=== PATIENT | female | born 1945 | race Caucasian/White ===

== ENCOUNTER 2017-10-04 09:14 | Day surgery (SDC) | payer MEDICARE, SELFPAY ==
[2017-10-04 10:13] VITALS: BP 130/71; PULSE 77; RESP 18; TEMP 36.2; O2SAT 96
--- NOTE | 2017-10-04 10:21 | PM.PREOP ---
Pre-operative Note Interval Note Pre-op Check: History & Physical Reviewed by Physician
[2017-10-04] MEDS: PROPARACAINE 0.5% OPHTH SOL 2 DROPS EYE-OP (10:32)
[2017-10-04] MEDS: CATARACT EYE COMPOUND (10 DROPS/SYRINGE) 3 DROPS EYE-OP (10:33)
[2017-10-04] MEDS: BALANCED SALT IRRIG SOLN NO.2 15 ML IRRIG.SOLN IRR (12:12)
[2017-10-04] MEDS: CARBACHOL 1.5 ML VIAL INJ (12:13)
[2017-10-04] MEDS: HYALURONATE SODIUM 10 MG/ML SYRINGE INJ (12:13)
[2017-10-04] MEDS: CHONDROIDTIN/SOD HYALURONATE 1.05 ML SYRINGE INTRAOCULA (12:13)
[2017-10-04] MEDS: MOXIFLOXACIN OPHTH DROPS 3 ML BOTTLE 2 DROPS INJ (12:14)
[2017-10-04] MEDS: PHENYLEPHRINE/LIDOCAINE 3ML VIAL (OR) EYE-OP (12:15)
[2017-10-04] MEDS: NEOMYCIN/POLY/DEX OPHTH OINT 1 APPLIC EYE-LEFT (12:15)
[2017-10-04] MEDS: TRIAMCINOLONE 50 MG/5 ML VIAL INJ (12:16)
[2017-10-04] MEDS: LIDOCAINE 2% 4 ML, BUPIVACAINE 0.5% (PF) 4 ML, HYALURONIDASE 150 UNIT INJ (12:17)
[2017-10-04] MEDS: BALANCED SALT IRRIG SOLN NO.2 500 ML, EPINEPHrine 1 MG IRR (12:17)
[2017-10-04] MEDS: LIDOCAINE 1% W/EPI INJ 20 ML INJ (12:18)
[2017-10-04 13:20] VITALS: BP 149/82; PULSE 71; RESP 16; TEMP 36.1; O2SAT 100
--- NOTE | 2017-10-04 15:16 | PM.OP.1 ---
Procedure & Clinicians Procedure: Date of service: October 05, 2007 Preoperative diagnoses: 1. Nuclear sclerotic Cataract Postoperative diagnoses: 1. Cataract nuclear sclerotic Procedure: Phacoemulsification with posterior chamber intraocular lens implant Surgeon: Edel De La Rosa MD Complications: None Specimen: None Implant: ZCBOO +23.5. Blood loss: None Anesthesia: Retrobulbar with monitored standby Anesthesiologist: Rico Alonzo M.D. Description of procedure: Patient is a 72 year old with decreased vision due to cataract which is affecting activities of daily living. She wants surgery to improve vision. She has taken to the operating room and given IV sedation. A retrobulbar block insert consisting of 6 cc of 2% xylocaine without epinephrine mixed half and half with 0.5% Marcaine with 1 cc of hyaluronidase added is placed between the medial and lateral 1/3 of the inferior orbital rim. Lid akinesia is obtain with 1% xylocaine with epinephrine infiltrated along the lid margin. The eye is manually massaged for 30 sec, prepped using Betadine solution, and draped in the usual sterile fashion. Temporal approach was made, a 1 mm side-port incision was made at the 12 oclock meridian. Phenylephrine 1.5% mixed with 1% xylocaine 0.2 cc was placed into the anterior chamber. Viscoat followed by Gerald was then placed. A 2.6 mm clear incision with a 2.6 mm blade was placed at the 3 oclock meridian. A 360 degree capsulorrhexis style capsulotomy was then performed with a cystitome needle on a Healon. Hydrodelineation and hydrodissection were performed. The phacoemulsification unit is introduced, and sculpting notice used to groove the central lens. It is then removed in chopping mode. Epi nucleus is removed with epinuclear mode and irrigation aspiration was used to remove the peripheral cortex. The posterior capsule is polished. The intraocular lens is selected, inspected, power confirmed, and placed in the posterior chamber. The pupil was constricted. The wound was stromally hydrated and tested for leaks, there was none and was left sutureless. Vigamox 0.1 cc was placed into the anterior chamber. Kenalog 0.2 cc was placed in the superior subconjunctival space. A drop of antibiotic and was placed and the eye was patched and shielded. The patient was stable and returned to the recovery room in excellent condition. Dictated by: Edel De La Rosa MD Copy to: [facility]
== END 2017-10-04 13:20 | disposition home or self-care (01) ==
PROVIDERS: Family Provider Internal Medicine; PCP Internal Medicine; Visit Provider Ophthalmology
DX: H25.12 Age-related nuclear cataract, left eye (principal)
CPT/HCPCS: J0171; J2704; J3301; J3470

== ENCOUNTER → 2017-10-09 13:06 | Outpatient (CLI) | payer MEDICARE, SELFPAY | PROVIDERS: PCP Internal Medicine; Visit Provider Internal Medicine | DX: M81.0 Age-related osteoporosis without current pathological fracture (principal); Z78.0 Asymptomatic menopausal state; Z82.62 Family history of osteoporosis | CPT/HCPCS: 77080 ==

== ENCOUNTER 2017-10-11 08:04 | Day surgery (SDC) | payer MEDICARE, SELFPAY ==
--- NOTE | 2017-10-06 16:40 | P.OP_ITS ---
Procedure & Clinicians Procedure: Date of service: October 12, 2007 Preoperative diagnoses: 1. Right nuclear sclerotic Cataract Postoperative diagnoses: 1. Cataract status post phacoemulsification with posterior chamber intraocular lens implant. Procedure: Phacoemulsification with posterior chamber intraocular lens implant Surgeon: Edel De La Rosa MD Complications: None Specimen: None Implant: +22.5 Blood loss: None Anesthesia: Retrobulbar with monitored standby Anesthesiologist: Geneva Bae Description of procedure: Patient is a female year old with decreased vision due to cataract which is affecting activities of daily living. She wants surgery to improve vision. She was taken to the operating room and given IV sedation. A retrobulbar block insert consisting of 6 cc of 2% xylocaine without epinephrine mixed half and half with 0.5% Marcaine with 1 cc of hyaluronidase added is placed between the medial and lateral 1/3 of the inferior orbital rim. Lid akinesia is obtain with 1% xylocaine with epinephrine infiltrated along the lid margin. The eye is manually massaged for 30 sec, prepped using Betadine solution, and draped in the usual sterile fashion. Temporal approach was made, a 1 mm side-port incision was made at the 7:30 position. Phenylephrine 1.5% mixed with 1% xylocaine 0.2 cc was placed into the anterior chamber. Viscoat followed by Gerald was then placed. A 2.6 mm clear incision with a 2.6 mm blade was placed at the 170 degree meridian. A 360 degree capsulorrhexis style capsulotomy was then performed with a cystitome needle on a Healon. Hydrodelineation and hydrodissection were performed. The phacoemulsification unit is introduced, and sculpting notice used to groove the central lens. It is then removed in chopping mode. Epi nucleus is removed with epinuclear mode and irrigation aspiration was used to remove the peripheral cortex. The posterior capsule is polished. The intraocular lens is selected, inspected, power confirmed, and placed in the posterior chamber. The pupil was constricted. The wound was strongly hydrated and tested for leaks, there was none and was left sutureless. Vigamox 0.1 cc was placed into the anterior chamber. Kenalog 0.2 cc was placed in the superior subconjunctival space. A drop of antibiotic and was placed and the eye was patched and shielded. The patient was stable and returned to the recovery room in excellent condition. Dictated by: Edel De La Rosa MD Copy to: [facility]
--- NOTE | 2017-10-06 16:41 | PM.PREOP ---
Pre-operative Note Interval Note Pre-op Check: History & Physical Reviewed by Physician
[2017-10-11] MEDS: PROPARACAINE 0.5% OPHTH SOL 2 DROPS EYE-OP (08:22)
[2017-10-11 08:23] VITALS: BP 128/77; PULSE 76; RESP 16; TEMP 36.3; O2SAT 99; BMI 51.0
[2017-10-11] MEDS: CATARACT EYE COMPOUND (10 DROPS/SYRINGE) 3 DROPS EYE-OP (08:24)
[2017-10-11] MEDS: BALANCED SALT IRRIG SOLN NO.2 15 ML IRRIG.SOLN IRR (09:15)
[2017-10-11] MEDS: CHONDROIDTIN/SOD HYALURONATE 1.05 ML SYRINGE INTRAOCULA (09:16)
[2017-10-11] MEDS: HYALURONATE SODIUM 10 MG/ML SYRINGE INJ (09:16)
[2017-10-11] MEDS: CARBACHOL 1.5 ML VIAL INJ (09:16)
[2017-10-11] MEDS: LIDOCAINE 1% W/EPI INJ 20 ML INJ (09:17)
[2017-10-11] MEDS: MOXIFLOXACIN OPHTH DROPS 3 ML BOTTLE 2 DROPS INJ (09:17)
[2017-10-11] MEDS: OFLOXACIN 0.3% OPHTH 5 ML 2 DROPS EYE-RIGHT (09:18)
[2017-10-11] MEDS: NEOMYCIN/POLY/DEX OPHTH OINT 1 APPLIC EYE-RIGHT (09:18)
[2017-10-11] MEDS: PHENYLEPHRINE/LIDOCAINE 3ML VIAL (OR) EYE-OP (09:19)
[2017-10-11] MEDS: TRIAMCINOLONE 50 MG/5 ML VIAL INJ (09:20)
[2017-10-11] MEDS: BALANCED SALT IRRIG SOLN NO.2 500 ML, EPINEPHrine 1 MG IRR (09:20)
[2017-10-11] MEDS: LIDOCAINE 2% 4 ML, BUPIVACAINE 0.5% (PF) 4 ML, HYALURONIDASE 150 UNIT INJ (09:20)
[2017-10-11 10:00] VITALS: BP 130/69; PULSE 70; RESP 16; TEMP 36.2; O2SAT 98
== END 2017-10-11 10:30 | disposition home or self-care (01) ==
LOC: OR 08:06
PROVIDERS: PCP Internal Medicine; Visit Provider Ophthalmology
DX: H25.11 Age-related nuclear cataract, right eye (principal)
CPT/HCPCS: J0171; J2704; J3301; J3470

== ENCOUNTER 2017-11-29 12:39 | Day surgery (SDC) | payer MEDICARE, SELFPAY ==
--- NOTE | 2017-11-29 | PATH_ITS ---
[facility] Accession Number: [id number] . 01 Material submitted: . TRANSVERSE COLON POLYPS . 02 Diagnosis: Transverse Colon Polyps: Serrated polyp, cannot exclude sessile serrated adenoma x1. Submucosal leiomyoma x1. MRV/11/30/2017 . 02 Electronically signed: . Lio Pitt MD, PhD, Pathologist NPI- [id number] . 01 Gross description: . Received in one formalin-filled container labeled with the patient's name and labeled transverse col polyps x2, are two 0.3-0.4 cm portions of tissue, entirely submitted in one cassette. ([id number]) /FRR . 02 Pathologist provided ICD-10: D12.3, K63.5 . 02 CPT . 205201 Performed at: 01 [facility] [address] [id number] MD Dayron Luevano MD Phone: [phone] Performed at: 02 [facility] [address] [address] [place] [id number] MD Amador Koehler MD Phone: [phone]
[2017-11-29 13:00] VITALS: BP 119/72; PULSE 77; RESP 16; TEMP 36.1; O2SAT 98; BMI 23.0
[2017-11-29 13:07] VITALS: BMI 23.0
[2017-11-29] MEDS: SODIUM CHLORIDE 0.9% 1,000 ML 42 ML IV (13:09)
[2017-11-29] MEDS: fentaNYL 250 MCG/5 ML INJ IV (14:38)
--- NOTE | 2017-11-29 14:46 | PM.HP.1 ---
History of Present Illness Date Patient Seen: 11/29/17 Time Patient Seen: 14:46 Chief complaint: [id number] COLONOSCOPY WITH BIOPSY Narrative: Screening for colon cancer. First colonoscopy Patient History Family & Social History Social History: household members children Meds Home Medications Medication Instructions Recorded Confirmed Type aspirin 81 mg PO QDAY #0 06/25/16 11/29/17 History omega 0-gsy-gdk-fish oil [Fish Oil] 1,000 mg PO #0 06/25/16 History phytonadione (vitamin K1) 5 mg PO #0 06/25/16 History [Mephyton] Allergies Allergy/AdvReac Type Severity Reaction Status Date / Time Latex, Natural Rubber Allergy Verified 10/04/17 10:31 Exam Vital Signs (past 8 hours): - 11/29/17 13:00 Temperature 96.9 F L Pulse Rate 77 Respiratory Rate 16 Blood Pressure 119/72 Pulse Oximetry 98 Oxygen Delivery Method Room Air Narrative Exam Narrative: Oropharynx free of lesion Chest: Auscultation percussion Cardiac exam reveals no S3 or murmur Assessment & Plan Plan: Assessment/Plan Narrative: Screening colonoscopy
[2017-11-29] MEDS: MIDAZOLAM 5 MG/5 ML VIAL IV (14:47)
[2017-11-29 14:48] VITALS: BP 115/71; PULSE 68; RESP 12; TEMP 36.6; O2SAT 95
--- NOTE | 2017-11-29 14:48 | PM.OP.ENDO ---
Operative Date/Time/Diagnoses Date of procedure: 11/29/17 Time of procedure: 14:48 Pre-op diagnosis: See indication and findings Post-op diagnosis: same Procedure & Clinicians Study performed: Colonoscopy Same procedure as scheduled: Yes Indications: Screening for colon cancer. First colonoscopy Surgeon: Georgina Lockett Procedure Notes Procedure in detail: After informed consent was obtained the patient was placed in left lateral decubitus position. The video colonoscope was introduced the rectum slowly advanced to the cecum. Also withdrawn mucosa was carefully examined. Scope was removed patient tolerated procedure well. Preparation was good. Blood loss none Complications none Sedation Versed 100 mcg versed 6 mg IV titration Total sedation time 26 min Findings 1. Two polyps in the transverse colon trouble biopsied and removed completely 2. 3 mm polyp in the sigmoid colon Jumbo biopsy remove completely 3. Scattered diverticula in left colon 4. Otherwise negative colonoscopy to cecum Patient will be sent a letter regarding the pathology results. Follow-up will be based on these findings. Most likely 5 years.
[2017-11-29 14:54] VITALS: BP 118/76; PULSE 82; RESP 18; O2SAT 97
[2017-11-29 14:58] VITALS: BP 119/74; PULSE 75; RESP 14; TEMP 36.2; O2SAT 95
[2017-11-29 15:07] VITALS: BP 112/66; PULSE 71; RESP 16; TEMP 36; O2SAT 96
--- NOTE | 2017-11-29 18:26 | SUR.PHASEII ---
1520 Pt vomited yellow fluid after sitting up to dress. Denied nausea after emesis. Requested to d/c home. Skin pink.
== END 2017-11-29 15:23 | disposition home or self-care (01) ==
PROVIDERS: PCP Internal Medicine; Visit Provider Internal Medicine Gastroenterology
PROC: 0DJD8ZZ Inspection of Lower Intestinal Tract, Via Natural or Artificial Opening Endoscopic (ICD-10-PCS; CPT 45378; principal; 2017-11-29 13:30)
DX: Z12.11 Encounter for screening for malignant neoplasm of colon (principal); D12.3 Benign neoplasm of transverse colon; D12.5 Benign neoplasm of sigmoid colon; K57.30 Diverticulosis of large intestine without perforation or abscess without bleeding
CPT/HCPCS: 45380; 88305; J2250; J3010

== ENCOUNTER → 2017-12-22 10:32 | Outpatient (CLI) | payer MEDICARE, SELFPAY ==
[2017-12-22 11:59] LABS: BUN Creatinine Ratio 24.3 (6-22); Blood Urea Nitrogen 17 mg/dL (7-17); Calcium 9.3 mg/dL (8.4-10.2); Carbon Dioxide 31 mmol/L (22-32); Chloride 101 mmol/L (98-107); Estimated Glomerular Filt Rate > 60.0 mL/min (>60); Glucose 102 mg/dL (80-110); HEMOLYSIS < 15 (0-50); Potassium 4.1 mmol/L (3.4-5.1); Sodium 138 mmol/L (137-145)
[2017-12-22 12:16] LABS: Vitamin D 25 Hydroxy (D3) 61.4 ng/mL (30.0-100.0)
== END ==
PROVIDERS: PCP Internal Medicine; Visit Provider Internal Medicine
DX: M81.0 Age-related osteoporosis without current pathological fracture (principal)
CPT/HCPCS: 36415; 80048; 82306

== ENCOUNTER → 2018-01-31 09:48 | Outpatient (CLI) | payer MEDICARE, SELFPAY ==
--- NOTE | 2018-01-31 | DI.MG.S_ITS ---
BILATERAL DIGITAL SCREENING MAMMOGRAM 3D/2D WITH CAD: 01/31/2018 CLINICAL: Routine screening. Comparison is made to exams dated: 08/23/2016 mammogram, 02/05/2014 mammogram - [facility], and 04/23/2012 mammogram - [facility]. The tissue of both breasts is extremely dense, which lowers the sensitivity of mammography. Current study was also evaluated with a Computer Aided Detection (CAD) system. There are benign vascular calcifications in both breasts. No significant masses, calcifications, or other findings are seen in either breast. There has been no significant interval change. IMPRESSION: There is no mammographic evidence of malignancy. A 1 year screening mammogram is recommended.(02/01/2019) This exam was interpreted at Station ID: [id number]. NOTE: For mammograms, a report in lay terms will be sent to the patient. Approximately 15% of breast malignancies will not be visualized mammographically. In the management of a palpable breast mass, a negative mammogram must not discourage biopsy of a clinically suspicious lesion. Electronically Signed By: Eder singh/peyton:02/01/2018 05:27:56 letter sent: Normal Exam ACR BI-RADS Category 2: Benign Finding(s) 3342F
== END ==
PROVIDERS: PCP Internal Medicine; Visit Provider Internal Medicine
DX: Z12.31 Encounter for screening mammogram for malignant neoplasm of breast (principal)
CPT/HCPCS: 77063; 77067

== ENCOUNTER → 2018-03-21 12:48 | Outpatient (CLI) | payer MEDICARE, SELFPAY ==
[2018-03-21 20:10] LABS: Alanine Aminotransferase 29 IU/L (9-52); Albumin 4.4 g/dL (3.5-5.0); Albumin Globulin Ratio 1.6 (1.0-2.8); Alkaline Phosphatase 82 U/L (38-126); Aspartate Aminotransferase 34 IU/L (14-36); BUN Creatinine Ratio 26.7 (6-22); Bilirubin Total 0.8 mg/dL (0.2-1.3); Blood Urea Nitrogen 16 mg/dL (7-17); Calcium 9.6 mg/dL (8.4-10.2); Carbon Dioxide 27 mmol/L (22-32); Chloride 101 mmol/L (98-107); Estimated Glomerular Filt Rate > 60.0 mL/min (>60); Globulin 2.8 g/dL (1.7-4.1); Glucose 87 mg/dL (80-110); HEMOLYSIS < 15 (0-50); Magnesium 2.3 mg/dL (1.6-2.3); Phosphorous 4.4 mg/dL (2.8-4.1); Potassium 4.5 mmol/L (3.4-5.1); Sodium 139 mmol/L (137-145); Total Protein 7.2 g/dL (6.3-8.2)
[2018-03-21 20:11] LABS: C-Reactive Protein Quant < 0.5 mg/dL (<1.0)
[2018-03-21 23:14] LABS: Thyroid Stimulating Hormone 1.54 uIU/mL (0.47-4.68)
[2018-03-22 03:23] LABS: Free T4, Direct Thyroxine 1.59 ng/dL (0.78-2.19)
== END ==
PROVIDERS: PCP Internal Medicine; Visit Provider Internal Medicine
DX: M81.0 Age-related osteoporosis without current pathological fracture (principal); E78.00 Pure hypercholesterolemia, unspecified
CPT/HCPCS: 36415; 80053; 82523; 83735; 84075; 84100; 84439; 84443; 86140

== ENCOUNTER 2018-06-15 15:48 | Emergency (ER) | payer MEDICARE, SELFPAY ==
[2018-06-15 15:54] VITALS: BP 128/72; PULSE 84; RESP 14; TEMP 36.3; O2SAT 98; BMI 23.1
--- NOTE | 2018-06-15 15:57 | DI.RAD.S_ITS ---
PROCEDURE: XR WRIST RT MIN 3V INDICATIONS: wrist deformity TECHNIQUE: 2 views of the wrist were acquired. COMPARISON: None. FINDINGS: Bones: There is an impacted, comminuted fracture through the distal radius. This likely extends into the joint space. Soft tissues: No suspicious soft tissue calcifications. IMPRESSION: Impacted comminuted distal radial fracture. Dictated by: Yesika Mccain M.D. on 06/15/2018 at 16:21 Approved by: Yesika Mccain M.D. on 06/15/2018 at 16:22
--- NOTE | 2018-06-15 17:45 | ED.UPPEXIN ---
HPI - Extremity Injury (Upper) <EBONY Gonzalez - Last Filed: 06/15/18 22:19> General Chief Complaint: Extremity Injury, Upper Stated Complaint: glf right wrist pain Time Seen by Provider: 06/15/18 17:14 Source: patient Mode of arrival: ambulatory History of Present Illness HPI narrative: healthy 73-year-old female that is a nonsmoker for complaint of pain into her right wrist. She states that she slipped earlier today while she was walking and fell on outstretched hand. She reports increased pain and swelling to the right wrist after the fall. She denies any head injury. No neck pain. She denies any lower extremity pain. She is ambulatory in the emergency room. She denies any other injuries or concerns. In MD complaint: injury to: right and wrist Related Data Home Medications Medication Instructions Recorded Confirmed aspirin 81 mg PO QDAY #0 06/25/16 05/14/18 omega 3-jzj-yby-fish oil [Fish Oil] 1,000 mg PO #0 06/25/16 05/14/18 phytonadione (vitamin K1) 5 mg PO #0 06/25/16 05/14/18 [Mephyton] melatonin 2.5 mg chewable tablet 2.5 mg PO BEDTIME PRN 05/14/18 05/14/18 Previous Rx's Medication Instructions Recorded hydrocodone-acetaminophen 1 tab PO Q6H PRN #10 tab 06/15/18 Allergies Allergy/AdvReac Type Severity Reaction Status Date / Time Latex, Natural Rubber Allergy Verified 06/15/18 15:54 Review of Systems <EBONY Gonzalez - Last Filed: 06/15/18 22:19> Constitutional Denies chills, Denies fever(s), Denies lethargy and Denies weakness Cardiovascular Denies chest pain, Denies irregular heart rhythm, Denies lightheadedness, Denies palpitations, Denies dyspnea, Denies dyspnea on exertion and Denies orthopnea Respiratory Denies cough, Denies dyspnea, Denies dyspnea on exertion and Denies wheezing Gastrointestinal Gastrointestinal: Denies abdominal pain, Denies change in bowel habits, Denies diarrhea, Denies nausea and Denies vomiting Genitourinary Denies hematuria, Denies flank pain, Denies urinary incontinence and Denies urinary urgency Musculoskeletal Comments: Right wrist pain Integumentary/Breasts Denies pruritus, Denies erythema, Denies rash and Denies wounds Neurologic Denies confusion and Denies weakness Psychiatric Denies anxiety, Denies confusion, Denies depression, Denies homicidal ideation and Denies suicidal ideation Endocrine Denies palpitations Hematologic/Lymphatic Denies easy bruising Allergic/Immunologic Denies wheezing PFSH <EBONY Gonzalez - Last Filed: 06/15/18 22:19> Social History household members: children Smoking Status: Never smoker Social History household members: children Smoking Status: Never smoker Exam <EBONY Gonzalez - Last Filed: 06/15/18 22:19> Initial Vital Signs Initial Vital Signs: Vital Signs Temperature 97.3 F L 06/15/18 15:54 Pulse Rate 84 06/15/18 15:54 Respiratory Rate 14 06/15/18 15:54 Blood Pressure 128/72 06/15/18 15:54 Pulse Oximetry 98 06/15/18 15:54 Const General: cooperative and well developed Nutritional Appearance: well nourished Orientation: alert, awake, oriented x3 and not confused HENCT Mouth: oral mucosae normal and moist mucous membranes Eyes Conjunctivae: conjunctivae normal Sclera: sclerae normal Pupils: PERRL EOM: EOM intact bilaterally Resp Effort & Inspection: normal respiratory effort, able to speak in complete sentences, no respiratory distress and no use of accessory muscles Auscultation: clear to auscultation bilaterally, no rales, no rhonchi and no wheezes Cardio Rate: regular rate Rhythm: regular rhythm Heart Sounds: no click, no gallops, no murmurs and no rubs Skin General: no rashes or lesions noted, No jaundice and No petechiae Neuro General: alert, oriented x3, gait normal and no focal motor deficits Speech: speech normal Extrem Other: slight swelling and tenderness into the right wrist. There is ecchymosis to the right wrist. No open lesions. Distal sensation is intact. Distal pulses are intact. Distal range of motion is intact Psych Appearance: well kempt Mental Status: mental status grossly normal Attitude: cooperative Thought Content: normal and suicidality Judgment: judgment good <Gina Egan DO - Last Filed: 06/16/18 08:33> Initial Vital Signs Initial Vital Signs: Vital Signs Temperature 97.3 F L 06/15/18 15:54 Pulse Rate 84 06/15/18 15:54 Respiratory Rate 14 06/15/18 15:54 Blood Pressure 128/72 06/15/18 15:54 Pulse Oximetry 98 06/15/18 15:54 Course <EBONY Gonzalez - Last Filed: 06/15/18 22:19> Orders Ordered: ED Orders 06/15/18 15:57 XR wrist RT min 3V Stat Vital Signs - 8 hr 06/15/18 15:54 06/15/18 19:33 Temperature 97.3 F L Pulse Rate 84 89 Respiratory Rate 14 17 Blood Pressure 128/72 Blood Pressure [Left Arm] 132/83 Pulse Oximetry 98 98 <Gina Egan DO - Last Filed: 06/16/18 08:33> Orders Ordered: ED Orders 06/15/18 15:57 XR wrist RT min 3V Stat Vital Signs - 8 hr 06/15/18 15:54 06/15/18 19:33 Temperature 97.3 F L Pulse Rate 84 89 Respiratory Rate 14 17 Blood Pressure 128/72 Blood Pressure [Left Arm] 132/83 Pulse Oximetry 98 98 MDM - Extremity Injury (Upper) <EBONY Gonzalez - Last Filed: 06/15/18 22:19> Imaging Data right wrist: Radiologist's impression: [address] [address] XRay Report Signed Patient: Nette Silverman BMR#: [id number] : 5Acct:[id number] Age/Sex: 73 / FDate of Service: 06/15/18 Loc: ED Accession Number: [id number] Procedure: XR wrist RT min 3V Ordering Provider: Gina Egan D.O. PROCEDURE: XR WRIST RT MIN 3V INDICATIONS: wrist deformity TECHNIQUE: 2 views of the wrist were acquired. COMPARISON: None. FINDINGS: Bones: There is an impacted, comminuted fracture through the distal radius. This likely extends into the joint space. Soft tissues: No suspicious soft tissue calcifications. IMPRESSION: Impacted comminuted distal radial fracture. Dictated by: Yesika Mccain M.D. on 06/15/2018 at 16:21 Approved by: Yesika Mccain M.D. on 06/15/2018 at 16:22 [facility] Narrative Medical decision making narrative: x-ray the right wrist was obtained and shows a impacted comminuted distal radial fracture. she is placed in a sugar-tong splint for comfort and support. Uasw-cfm-zeqhrni Tylenol as needed for any discomfort. Small amount of [place] is prescribed for breakthrough pain. Ice and elevation help with swelling. Call Orthopedics office next week schedule follow-up appointment. Discussed case with Dr. [facility] and who agreed with plan. for any worsening symptoms return to the emergency room. Discharge Plan Departure Patient Disposition: Home Clinical Impression: Fracture of right wrist Qualifiers: Encounter type: initial encounter Fracture type: closed Qualified Code(s): S62.101A - Fracture of unspecified carpal bone, right wrist, initial encounter for closed fracture Discharge Date/Time: 06/15/18 19:35 Interventions: ED Discharge Assessment Last Done: 06/15/18 19:35 Instructions: DI for Wrist Fracture Activity Restrictions/Additional Instructions: x-ray shows a fracture of the right wrist. You have been placed in a splint for comfort and support use as directed. Use capn-vja-pfbrbbj Tylenol as needed for any discomfort. Small amount of [place] was provided for breakthrough pain use as directed. No driving while on the [place]. use ice and elevation help with any swelling. Follow up with Orthopedics next week call the office at number provided to schedule follow-up appointment. For any worsening symptoms re Prescriptions: New hydrocodone-acetaminophen 5-325 mg tablet 1 tab PO Q6H PRN (Reason: pain) Qty: 10 RF: 0 No Action aspirin 81 MG tablet,delayed release (DR/EC) 81 mg PO QDAY Qty: 0 RF: 0 phytonadione (vitamin K1) [Mephyton] 5 MG tablet 5 mg PO Qty: 0 RF: 0 omega 3-lzb-ecm-fish oil [Fish Oil] 1,000 MG capsule 1,000 mg PO Qty: 0 RF: 0 melatonin 2.5 mg tablet,chewable 2.5 mg PO BEDTIME PRNRF: 0 Referrals: Sera Lopez MD [Physician] - Ankita De La Cruz MD [Primary Care Provider] - <Gina Egan DO - Last Filed: 06/16/18 08:33> Cosign ED Attending Cosignature Attestation: I was immediately available in the department for consultation, images were reviewed. Case and recommendations from Dr. Lopez/orthopedic surgery discussed. This documentation has been reviewed and I agree with assessment and plan. Supervised by Gina Egan DO
[2018-06-15 19:33] VITALS: BP 132/83; PULSE 89; RESP 17; O2SAT 98
== END 2018-06-15 19:35 | disposition home or self-care (01) ==
PROVIDERS: Emergency Provider Nurse Practitioner Family; PCP Internal Medicine
DX: S62.101A Fracture of unspecified carpal bone, right wrist, initial encounter for closed fracture (principal); W01.0XXA Fall on same level from slipping, tripping and stumbling without subsequent striking against object, initial encounter
CPT/HCPCS: 29105; 29240; 73110; 99283

== ENCOUNTER 2018-06-20 11:50 | Day surgery (SDC) | payer MEDICARE, SELFPAY ==
[2018-06-19 07:53] VITALS: BMI 24.7
[2018-06-20] MEDS: LACTATED RINGERS 1,000 ML 42 ML IV (12:50)
[2018-06-20 12:52] VITALS: BP 133/76; PULSE 84; RESP 16; TEMP 37.1; O2SAT 96; BMI 24.7
--- NOTE | 2018-06-20 14:15 | PM.PREOP ---
Pre-operative Note Interval Note History & Physical reviewed/Exam performed by Physician: Yes Changes to H&P: No
[2018-06-20] MEDS: CEFAZOLIN 2 GM/100 ML FROZ.PIGGY IV (14:52)
--- NOTE | 2018-06-20 15:07 | SUR.OPER ---
Supine on padded OR bed, head on pillow, arms secured on padded arm boards at <90 degrees abduction, legs uncrossed, safety belt at thigh, tape over blanket over lower legs.
[2018-06-20 17:00] VITALS: BP 114/65; PULSE 72; RESP 12; TEMP 36.9; O2SAT 93
[2018-06-20 17:05] VITALS: BP 114/65; PULSE 76; RESP 13; TEMP 36.9; O2SAT 94
[2018-06-20] MEDS: BUPIVACAINE 0.25% W/ EPI VIAL 50 ML INJ (17:07)
[2018-06-20 17:10] VITALS: BP 133/72; PULSE 81; RESP 16; TEMP 36.6; O2SAT 96
[2018-06-20 17:15] VITALS: BP 132/80; PULSE 81; RESP 12; TEMP 36.9; O2SAT 96
[2018-06-20 17:45] VITALS: BP 157/82; PULSE 83; RESP 16; TEMP 36.2; O2SAT 98
--- NOTE | 2018-06-20 17:45 | P.OP_ITS ---
Operative Date/Time/Diagnoses Date of procedure: 06/20/18 Time of procedure: 14:30 Pre-op diagnosis: 1. Distal radius fracture, right with dorsal angulation S52.599A 2. Osteoporosis Post-op diagnosis: same Procedure & Clinicians Procedure: Open reduction internal fixation of 2 part intra-articular fracture distal radius, right CPT code 67971 Same procedure as scheduled: Yes Indications: Patient is a 73-year-old female that had a fall onto an outstretched dominant right hand on 06/15/2018. Patient has dorsal angulation approximately 24? with a split into the lunate fossa. She is a very active 73-year-old female does lot of exercising every day. We discussed she would likely benefit from open reduction internal fixation to restore the volar angulation radial length and alignment. Further a open reduction internal fixation would help her get back to her pool activities faster than a cast with closed reduction percutaneous pinning. The patient understands and agrees with the plan. The risks benefits and alternatives surgery were discussed with the patient detail including but not limited to infection, stiffness, damage to nerves and vessels, persistent pain, inability to resume preoperative activity level and prominent hardware nonunion and malunion. Cardiopulmonary complications associated with general anesthesia including DVT PE stroke, paralysis, were also discussed. The patient expressed understanding and willingness to proceed. Informed consent was signed. Surgeon: Sera Lopez Click Yes if Unassisted: Yes Anesthesia Type: General and Local Operative Notes Findings: Intra-articular distal radius fracture with simple splint into the lunate fossa and remainder fracture extra-articular through the distal radius metaphysis. This was stabilized with a Total-[employer] volar distal radius locking plate. Closure Type: primary Specimen(s): none sent Prosthetic devices, grafts, tissues, transplants, or devices: [facility] narrow short right-sided distal radius locking plate with nonlocking cortical shaft screws and a mix of nonlocking and locking screws and pegs distally. Applied: other (Splint) Estimated Blood Loss (mL): 10 Blood products transfused: none Tourniquet time (min): 90 Procedure in detail: Patient was seen in the preoperative area site of surgery was marked and informed consent confirmed. The patient was then brought back to the operating room by the anesthesia team and positioned supine on the operative table. General anesthesia was administered. A well-padded nonsterile brachial tourniquet was placed. The arm was positioned on a hand table on the correct side. Right upper extremity was prepped and draped in the standard sterile fashion. SCDs were used on the lower extremities and all bony prominences were well padded. Formal time-out procedure was performed confirming the patient's side and site of surgery and administration of appropriate preoperative antibiotics. All were in agreement. The implants were in the room and accounted for. An approximately 6 cm incision was marked along the FCR tendon then the arm was exsanguinated and the tourniquet elevated to 250 mm of mercury and stayed there for approximately 90 min. Sharp incision was taken down through the skin and the fascia. Fascia over the FCR tendon was then divided the FCR tendon was retracted medially to protect the palmar cutaneous branch of the medial nerve and the floor of the FCR tendon sheath was opened. Deep muscles and FPL tendon were retracted ulnarly as well. And the radial artery was retracted radially. Brachioradialis was released off the radial styloid to aid the reduction. This exposed the distal radius fracture. The fracture site was cleaned and utilizing dorsal pressure on the distal fragment and flexion the fracture was reduced and pinned with a K-wire. Reduction was checked on x-ray and found to be adequate restoring the volar angulation to the distal radius fracture and alignment of the intra-articular split was satisfactory. Next a short narrow plate from the [employer] set was selected. This was positioned on the volar surface of the distal radius. Care was taken to place this in the appropriate positioning on just proximal to the watershed line. This was pinned in place and then checked. This was then adjusted slightly more proximal and a cortical screw was placed in the oblong hole. Final adjustments were made and the screw was tightened down. Next attention was turned distally and the distal screws were drilled through the guide initially nonlocking cortical screws were placed through the most ulnar of proximal slot in order to approximate the plate down to bone. A 2nd nonlocking screw was used in a similar fashion. This provided good alignment of the plate to the bone maintaining the volar tilt. Next locking threaded and smooth pegs were placed into the remainder of the distal locking holes. Attention was then turned proximally and the 2 final cortical screws were placed care taken not to make these prominent. In fact after placement a cortical screw was then changed out for a shorter screw for final x-rays. Once the fixation was completed and stable final x-rays were taken demonstrating flexion and extension of the wrist that was unobstructed. Careful lateral rows were obtained and demonstrating no intra-articular penetration and radiographs in varying degrees of supination and pronation were taken without any signs of dorsal cortex violation. Screw lengths were deemed appropriate the tourniquet was released hemostasis was achieved and the wound was closed in layers with 3 0 Vicryl 4 0 Monocryl and 3 O nylon. Sterile dressing with Xeroform gauze and Webril was applied and A volar splint was placed. Patient was awoken from anesthesia and taken to the PACU in good condition. There no immediate complications from this procedure. All counts were correct. Complications: none Condition: stable Disposition: PACU Plan for aftercare: Patient will be nonweightbearing on her right upper ext remity she may lift pencil and have full range of motion of her elbow. She will keep her splint clean dry and intact and follow up in approximately 2 weeks for suture removal and conversion to a removable wrist splint. She will have x-rays at that point. Patient will take vitamin D and calcium. She notes that even though she has osteoporosis due to her a dental needs she is contraindicated for t bisphosphonates.
--- NOTE | 2018-06-20 18:15 | SUR.PHASEII ---
Pt to go home via taxi; arranged via telephone for pt's son to come with taxi to ride home with pt. 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 Reviewed pain medication information and discharge instructions with pt's son. Last vital signs stable. Pt no c/o nausea or pain.
== END 2018-06-20 17:55 | disposition home or self-care (01) ==
PROVIDERS: PCP Internal Medicine; Visit Provider Orthopaedic Surgery Foot and Ankle Surgery
PROC: (CPT 25608; principal; 2018-06-20 13:45)
DX: S52.501A Unspecified fracture of the lower end of right radius, initial encounter for closed fracture (principal); M81.0 Age-related osteoporosis without current pathological fracture; W00.0XXA Fall on same level due to ice and snow, initial encounter
CPT/HCPCS: 25608; 93005; J0690; J1100; J2405; J2704; J3010

== ENCOUNTER 2018-10-03 22:32 | Emergency (ER) | payer MEDICARE, SELFPAY ==
[2018-10-03 22:56] VITALS: BP 157/80; PULSE 94; RESP 20; TEMP 36.6; O2SAT 94; BMI 22.3
--- NOTE | 2018-10-03 22:57 | DI.RAD.S_ITS ---
PROCEDURE: XR RIBS LT MIN 3V W CXR1V INDICATIONS: Left rib pain after fall TECHNIQUE: 2 views of the left ribs were acquired, along with a single view chest. COMPARISON: None. FINDINGS: Surgical changes and devices: None. Bones and chest wall: No fractures or dislocations. No suspicious bony lesions. Overlying soft tissues appear unremarkable. Lungs and pleura: No pleural effusions or pneumothorax. Lungs appear clear. Mediastinum: Mediastinal contours appear normal. Heart size is normal. IMPRESSION: No evidence of displaced rib fracture. No evidence of acute pulmonary process. Dictated by: Braulio Medrano M.D. on 10/04/2018 at 9:22 Approved by: Braulio Medrano M.D. on 10/04/2018 at 9:32
--- NOTE | 2018-10-03 22:57 | DI.RAD.S_ITS ---
PROCEDURE: XR KNEE RT 3V INDICATIONS: Right knee pain after fall TECHNIQUE: 3 views of the knee were acquired. COMPARISON: None. FINDINGS: Bones: No fractures or dislocations. No suspicious bony lesions. Soft tissues: No joint effusion. No suspicious soft tissue calcifications. IMPRESSION: No evidence acute bony abnormality of the right knee Dictated by: Braulio Medrano M.D. on 10/04/2018 at 9:32 Approved by: Braulio Medrano M.D. on 10/04/2018 at 9:34
--- NOTE | 2018-10-03 22:57 | ED_ITS ---
HPI - Extremity Injury (Lower) General Chief Complaint: Extremity Injury, Lower Stated Complaint: FALL, RIB AND RT ARM, KNEE INJURY Time Seen by Provider: 10/03/18 22:51 Source: patient Mode of arrival: ambulatory Limitations: no limitations History of Present Illness HPI Narrative: Patient is a 73-year-old female here for evaluation of right knee pain, pain to the left ribs, in bruising to the right arm. These were sustained after the patient tripped and fell in her garage. She states she landed right on her right knee. Since then she has had pain and difficulty moving her knee. She is also having pain on the left side of her ribs. Cannot remember which she hit her ribs on. No problems breathing. She also has bruising to the right forearm. Again does not remember what she hit it on. Did not hit her head. No loss of conscious. Not on anticoagulation Related Data Home Medications Medication Instructions Recorded Confirmed aspirin 81 mg PO QDAY #0 06/25/16 06/19/18 omega 8-fqr-wne-fish oil [Fish Oil] 1,000 mg PO DAILY #0 06/25/16 06/19/18 phytonadione (vitamin K1) 5 mg PO DIRECTED #0 06/25/16 06/19/18 [Mephyton] melatonin 2.5 mg chewable tablet 2.5 mg PO BEDTIME PRN 05/14/18 06/19/18 Previous Rx's Medication Instructions Recorded hydrocodone-acetaminophen 1 tab PO Q6H PRN #10 tab 06/15/18 hydrocodone-acetaminophen 1 tab PO Q4H PRN #30 tab 06/20/18 Allergies Allergy/AdvReac Type Severity Reaction Status Date / Time Latex, Natural Rubber Allergy Verified 06/20/18 13:04 Review of Systems Constitutional Denies frequent falls and Denies headache(s) ENT Ears, Nose, Mouth, and Throat: Denies headache(s) Cardiovascular Denies chest pain, Denies pedal edema, Denies edema, Denies palpitations and Denies dyspnea Respiratory Denies dyspnea Gastrointestinal Gastrointestinal: Denies abdominal pain Musculoskeletal Comments: Right knee pain, bruising to the right arm, left-sided rib pain Integumentary/Breasts Comments: Bruising to the right forearm Neurologic Denies behavioral changes, Denies frequent falls and Denies headache(s) Psychiatric Denies behavioral changes Endocrine Denies palpitations Hematologic/Lymphatic Denies easy bleeding and Denies easy bruising [facility] Medical History Arthritis (Acute) Cellulitis (Acute) Cervical vertebral fusion (Acute) Esophageal reflux (Acute) Finger laceration (Acute) Generalized anxiety disorder (Acute) History of hysterectomy (Acute) Hx of fracture of nose (Acute) Hypercholesterolemia (Acute) IBS (irritable bowel syndrome) (Acute) YUDELKA on CPAP (Acute) Osteoporosis (Acute) Palpitations (Acute) Surgical History Hx of appendectomy (Acute) Hx of rhinoplasty (Acute) Status post cataract extraction of both eyes with insertion of intraocular lens (Acute) Social History household members: children and none Smoking Status: Never smoker alcohol intake: current Social History household members: children and none Smoking Status: Never smoker alcohol intake: current Exam Initial Vital Signs Initial Vital Signs: Vital Signs Temperature 98 F 10/03/18 22:56 Pulse Rate 94 H 10/03/18 22:56 Respiratory Rate 20 10/03/18 22:56 Blood Pressure 157/80 H 10/03/18 22:56 Pulse Oximetry 94 10/03/18 22:56 Const General: cooperative, comfortable, well developed, well groomed and No acute distress Orientation: alert, awake and oriented x3 HENMT Head: normal to inspection and normocephalic Chest Chest: No crepitus, tenderness (Left posterior chest wall) and No rash Resp Effort & Inspection: normal respiratory effort Auscultation: clear to auscultation bilaterally Cardio Rate: regular rate Rhythm: regular rhythm Back/Spine/Pelvis Cervical Spine: No cervical spinal tenderness Skin Other: Bruising to the volar aspect of the right forearm Neuro General: alert and awake Cognition: normal cognition Speech: speech normal Extrem General: capillary refill normal Other: Right wrist right shoulder right elbow right hand unremarkable. Right knee with what appears to be a mild effusion. Patient unable to do a straight leg raise. No tenderness to palpation along the medial lateral joint line. No hamstring tenderness. ACL MCL PCL and LCL are all intact with functional testing. Patient does seem to have a high riding patella on the right compared to the left. Does appear to have a deficit in the patellar tendon region. She is also tender over the quadriceps tendon. Procedures Orthopedic Splinting/Casting Injury #1: Side: right Lower Extremity Injury Location: knee Lower Extremity Immobilizer: knee immobilizer Post splinting neuro exam: intact and no change Post splinting vascular exam: no change Placed by: Nursing Scores GCS Domitila coma scale eye opening: Spontaneous Domitila coma scale verbal response: Orientated [place] coma scale motor response: Obey commands Domitila coma scale total score: 15 Nexus Score for C-Spine Focal Neurologic deficit present: No Midline spinal tenderness present: No Altered level of conciousness present: No Intoxication present: No Distracting Injury Present: No Nexus Criteria for C-spine: 0 Course Orders Ordered: ED Orders 10/03/18 22:57 XR knee RT 3V Stat XR ribs LT min 3V w CXR1V Stat Discontinued Medications Hydrocodone Bitart/Acetaminophen (Vicodin Prepack) 1 bottle MISC SEEINSTR ONE Stop: 10/03/18 23:49 Last Admin: 10/03/18 23:53 Dose: 1 bottle Vital Signs - 8 hr 10/03/18 22:56 Temperature 98 F Pulse Rate 94 H Respiratory Rate 20 Blood Pressure 157/80 H Pulse Oximetry 94 MDM - Extremity Injury (Lower) Imaging Data Rib series left: Attestation: I personally reviewed and interpreted this imaging study as follows: My impression: Possible cortical irregularity however no definitive fracture Right knee x-ray: Attestation: I personally reviewed and interpreted this imaging study as follows: My impression: No acute fractures, high riding patella MDM Narrative Medical decision making narrative: Patient is neurovascularly intact. The bruising her right forearm appears to be superficial. She can flex and extend her elbow and pronate and supinate without any discomfort. This was not x- rayed. The left-sided rib series showed no lung issue. No definitive fractures. Her right knee is concerning for either quadriceps/patella tendon ru pture. She cannot do a straight leg raise. Does appear to be a patella tendon deficit. She was placed in a knee immobilizer. She was given follow-up with Orthopedics. Given return precautions and care instructions. She expressed understanding and agreement with plan. Discharge Plan Departure Patient Disposition: Home Clinical Impression: Left-sided chest wall pain Injury of knee, right Qualifiers: Encounter type: initial encounter Qualified Code(s): S89.91XA - Unspecified injury of right lower leg, initial encounter Discharge Date/Time: 10/03/18 23:55 Interventions: ED Discharge Assessment Last Done: 10/03/18 23:55 Instructions: How to Use a Knee Immobilizer Activity Restrictions/Additional Instructions: I recommend that tomorrow you contact the [facility] group at [phone]. Tell them that you have a suspected patella tendon rupture. Use the knee immobilizer like we discussed. Return to the emergency department for any new or worsening symptoms Prescriptions: No Action aspirin 81 MG tablet,delayed release (DR/EC) 81 mg PO QDAY Qty: 0 RF: 0 phytonadione (vitamin K1) [Mephyton] 5 MG tablet 5 mg PO DIRECTED Qty: 0 RF: 0 omega 5-bjh-erf-fish oil [Fish Oil] 1,000 MG capsule 1,000 mg PO DAILY Qty: 0 RF: 0 hydrocodone-acetaminophen 5-325 mg tablet 1 tab PO Q6H PRN (Reason: pain) Qty: 10 RF: 0 hydrocodone-acetaminophen 5-325 mg tablet 1 tab PO Q4H PRN (Reason: pain) Qty: 30 RF: 0 melatonin 2.5 mg tablet,chewable 2.5 mg PO BEDTIME PRN (Reason: Sleep) RF: 0 Referrals: Ankita De La Cruz MD [Primary Care Provider] -
[2018-10-03] MEDS: HYDROCODONE/ACET 5/325 PREPACK 1 BOTTLE MISC (23:53)
== END 2018-10-03 23:55 | disposition home or self-care (01) ==
PROVIDERS: Emergency Provider Emergency Medicine; PCP Internal Medicine
DX: R07.89 Other chest pain (principal); S89.91XA Unspecified injury of right lower leg, initial encounter; W01.0XXA Fall on same level from slipping, tripping and stumbling without subsequent striking against object, initial encounter
CPT/HCPCS: 71101; 73562; 99283

== ENCOUNTER → 2018-10-10 12:03 | Outpatient (CLI) | payer MEDICARE, SELFPAY ==
--- NOTE | 2018-10-10 | DI.RAD.S_ITS ---
PROCEDURE: XR THORACIC SPINE 2V INDICATIONS: Other chest pain TECHNIQUE: 3 views of the thoracic spine were acquired. COMPARISON: [facility], , THORACIC SPINE 3 VIEWS, 02/21/2017, 14:25. FINDINGS: Bones: No fractures or dislocations. No suspicious bony lesions. 12 pairs of ribs are noted, and appear intact where visualized. Soft tissues: No paravertebral stripe thickening. IMPRESSION: No trauma found, source of reported chest pain is not seen. 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 Dictated by: Gume Kimbrough M.D. on 10/10/2018 at 12:56 Approved by: Gume Kimbrough M.D. on 10/10/2018 at 12:57
== END ==
PROVIDERS: PCP Internal Medicine; Visit Provider Internal Medicine
DX: R07.89 Other chest pain (principal); M51.34 Other intervertebral disc degeneration, thoracic region
CPT/HCPCS: 72070

== ENCOUNTER 2019-01-14 14:57 | Emergency (ER) | payer MEDICARE, SELFPAY ==
[2019-01-14 15:00] VITALS: BP 146/87; PULSE 99; RESP 18; TEMP 36.4; O2SAT 96
--- NOTE | 2019-01-14 15:05 | DI.RAD.S_ITS ---
PROCEDURE: XR KNEE RT 3V INDICATIONS: fall w/ right knee pain and swelling TECHNIQUE: 3 views of the knee were acquired. COMPARISON: [facility], [place], XR KNEE RT 3V, 10/03/2018, 23:02. FINDINGS: Bones: No fractures or dislocations. No suspicious bony lesions. Soft tissues: Small joint effusion. Severe anterior knee juxta-articular soft tissue swelling. No suspicious soft tissue calcifications. IMPRESSION: 1. No fracture. No acute osseous lesion. If symptoms and/or clinical suspicion for pathology persists, further assessment with repeat radiographs (7-10 days) or advanced imaging (e.g. CT, MRI or bone scan) may be helpful. 2. Small nonspecific joint effusion. Dictated by: Joy Fung MD, PhD on 01/14/2019 at 15:37 Approved by: Joy Fung MD, PhD on 01/14/2019 at 15:38
[2019-01-14 15:12] VITALS: PULSE 99
--- NOTE | 2019-01-14 15:35 | ED.LOWEXIN ---
HPI - Extremity Injury (Lower) General Chief Complaint: Extremity Injury, Lower Stated Complaint: FALL KNEE INJURY Time Seen by Provider: 01/14/19 15:06 Source: patient Mode of arrival: wheelchair Limitations: no limitations History of Present Illness HPI Narrative: Patient 73-year-old female who presents with right knee pain. She states that she fell directly on it 2 hours prior to arrival. She tripped over something no other injury. She has obvious immediate swelling. No numbness or tingling she is unable to bend due to the significant amount of swelling. She is not on any anti coagulation but does take baby aspirin daily, because her doctor told her to. MD complaint: knee injury Related Data Home Medications Medication Instructions Recorded Confirmed aspirin 81 mg PO QDAY #0 06/25/16 06/19/18 omega 2-qde-zyy-fish oil [Fish Oil] 1,000 mg PO DAILY #0 06/25/16 06/19/18 phytonadione (vitamin K1) 5 mg PO DIRECTED #0 06/25/16 06/19/18 [Mephyton] melatonin 2.5 mg chewable tablet 2.5 mg PO BEDTIME PRN 05/14/18 06/19/18 rosuvastatin 5 mg PO DAILY 01/14/19 01/14/19 Previous Rx's Medication Instructions Recorded hydrocodone-acetaminophen 1 tab PO Q6H PRN #10 tab 06/15/18 hydrocodone-acetaminophen 1 tab PO Q4H PRN #30 tab 06/20/18 Allergies Allergy/AdvReac Type Severity Reaction Status Date / Time Latex, Natural Rubber Allergy Verified 06/20/18 13:04 Review of Systems Review of Systems Narrative: GENERAL: Denies chills,fever HEENT: Denies throat pain RESPIRATORY: Denies dyspnea, cough, wheezing CARDIOVASCULAR: Denies chest pain, palpitations GASTROINTESTINAL: Denies nausea, vomiting MUSCULOSKELETAL: For see HPI SKIN: No rash, no laceration, no pruritus NEUROLOGIC: Denies weakness, dizziness, headache, numbness 8 point review of systems is negative except for those stated above and HPI PFSH Social History household members: children and none Smoking Status: Never smoker alcohol intake: current Exam Initial Vital Signs Initial Vital Signs: Vital Signs Temperature 97.6 F 01/14/19 15:00 Pulse Rate 99 H 01/14/19 15:00 Respiratory Rate 18 01/14/19 15:00 Blood Pressure 146/87 H 01/14/19 15:00 Pulse Oximetry 96 01/14/19 15:00 GENERAL: Well-appearing, well-nourished and in no acute distress. CARDIOVASCULAR: peripheral pulses in tact, cap refill <2 sec RESPIRATORY: No respiratory distress, speaks in full sentences without difficult EXTREMITIES: Normal range of motion, no clubbing or edema. Neurovascularly intact Right knee significant obvious swelling just over the patella. Extreme tenderness to touch. Unable to flex due to significant swelling. NEUROLOGICAL: Cranial nerves II through XII grossly intact. Normal gait and speech. SKIN: Warm, dry, no petechiae, no rashes or lesions. Course Orders Ordered: ED Orders 01/14/19 15:05 XR knee RT 3V Stat Vital Signs Vital signs: Vital Signs - 8 hr 01/14/19 15:00 01/14/19 15:12 Temperature 97.6 F Pulse Rate 99 H Pulse Rate [Left Dorsalis Pedis] 99 H Respiratory Rate 18 Blood Pressure 146/87 H Pulse Oximetry 96 [facility] - Extremity Injury (Lower) Imaging Data right knee: Radiologist's impression: PROCEDURE: XR KNEE RT 3V INDICATIONS: fall w/ right knee pain and swelling TECHNIQUE: 3 views of the knee were acquired. COMPARISON: [facility], [facility], XR KNEE RT 3V, 10/03/2018, 23:02. FINDINGS: Bones: No fractures or dislocations. No suspicious bony lesions. Soft tissues: Small joint effusion. Severe anterior knee juxta-articular soft tissue swelling. No suspicious soft tissue calcifications. IMPRESSION: 1. No fracture. No acute osseous lesion. If symptoms and/or clinical suspicion for pathology persists, further assessment with repeat radiographs (7-10 days) or advanced imaging (e.g. CT, MRI or bone scan) may be helpful. 2. Small nonspecific joint effusion. Dictated by: Joy Fung MD, PhD on 01/14/2019 at 15:37 MDM Narrative Medical decision making narrative: Patient is ambulatory but it is quite painful. She has a walker at home. Recommended ice elevate and Lukasz wrap she is offered pain medications but declined. Discharge Plan Departure Patient Disposition: Home Clinical Impression: Contusion of knee, right Qualifiers: Encounter type: initial encounter Qualified Code(s): S80.01XA - Contusion of right knee, initial encounter Discharge Date/Time: 01/14/19 16:10 Instructions: DI for Contusion Activity Restrictions/Additional Instructions: *You have been diagnosed with right knee contusion *What to do: Elevate ice Lukasz wrap *Continue to take medications as directed Tylenol 1000 mg every 6 hours if needed for pain at maximum 4000 mg daily Ibuprofen 600 mg every 8 hours if needed for pain *Follow up with your primary care provider in 2-3 days *Return to ER if you should have redness, fevers or any new, worsening or concerning symptoms Prescriptions: No Action aspirin 81 MG tablet,delayed release (DR/EC) 81 mg PO QDAY Qty: 0 RF: 0 phytonadione (vitamin K1) [Mephyton] 5 MG tablet 5 mg PO DIRECTED Qty: 0 RF: 0 omega 4-vgp-pka-fish oil [Fish Oil] 1,000 MG capsule 1,000 mg PO DAILY Qty: 0 RF: 0 hydrocodone-acetaminophen 5-325 mg tablet 1 tab PO Q6H PRN (Reason: pain) Qty: 10 RF: 0 hydrocodone-acetaminophen 5-325 mg tablet 1 tab PO Q4H PRN (Reason: pain) Qty: 30 RF: 0 rosuvastatin 5 mg tablet 5 mg PO DAILY RF: 0 melatonin 2.5 mg tablet,chewable 2.5 mg PO BEDTIME PRN (Reason: Sleep) RF: 0 Referrals: Anktia De La Cruz MD [Primary Care Provider] -
--- NOTE | 2019-01-14 16:06 | PC.NURSE ---
mary anne wrap for comfort
== END 2019-01-14 16:10 | disposition home or self-care (01) ==
PROVIDERS: Emergency Provider Emergency Medicine; PCP Internal Medicine
DX: S80.01XA Contusion of right knee, initial encounter (principal); W01.0XXA Fall on same level from slipping, tripping and stumbling without subsequent striking against object, initial encounter
CPT/HCPCS: 73562; 99282; 99283

== ENCOUNTER → 2019-01-16 14:37 | Outpatient (CLI) | payer MEDICARE, SELFPAY ==
[2019-01-16 15:33] LABS: Add Manual Diff / Slide Review NO; Basophils Absolute Auto 0 /uL (0-100); Basophils Percent Auto 0.3 % (0-2); Eosinophils Absolute Auto 100 /uL (0-450); Eosinophils Percent Auto 1.3 % (2-4); Hematocrit 40.6 % (36-46); Hemoglobin 13.5 g/dL (12.0-16.0); Lymphocytes Absolute Auto 1400 /uL (1100-4500); Lymphocytes Percent Auto 14.8 % (25-40); Mean Corpuscular HGB Conc 33.2 % (30-36); Mean Corpuscular Hemoglobin 29.6 PG (26-34); Monocytes Absolute Auto 700 /uL (0-900); Monocytes Percent Auto 7.4 % (3-14); Neutrophils Absolute Auto 7200 /uL (1500-7000); Neutrophils Percent Auto 76.2 % (50-75); Platelet Count 387 X10^3/uL (150-400); Red Blood Cell Count 4.56 X10^6/uL (4.0-5.2); Red Cell Distribution Width 13.5 % (11.6-14.8); White Blood Cell Count 9.5 X10^3/uL (4.5-11.0)
[2019-01-16 15:36] LABS: Prothrombin Time 11.3 SECONDS (10.1-12.7)
[2019-01-16 15:38] LABS: PTT Partial Thromboplastin Tim 29 SECONDS (26.4-36.2)
== END ==
PROVIDERS: PCP Internal Medicine; Visit Provider Internal Medicine
DX: R23.8 Other skin changes (principal)
CPT/HCPCS: 36415; 85025; 85610; 85730

== ENCOUNTER → 2019-04-24 10:16 | Outpatient (CLI) | payer MEDICARE, SELFPAY ==
--- NOTE | 2019-04-24 | DI.MRI.S_ITS ---
PROCEDURE: MR LUMBAR SPINE WO CON INDICATIONS: Lumbago with sciatica, left side TECHNIQUE: Noncontrast sagittal T1 spin echo and T2 fast echo, sagittal STIR, axial T1 and T2 fast spin echo through the lumbar spine. In cases with scoliosis, additional coronal T2 fast spin echo may be performed. COMPARISON: Outside Facility, RG, MRI L-SPINE W/O CONTRAST, 09/16/2009, 13:50. FINDINGS: Image quality: Excellent. Alignment and Curvature: No plain films are available for comparison, for numbering purposes. Thus, for the purposes of this examination, 5 lumbar type vertebral bodies will be presumed, as denoted on the montage panel. This should be confirmed and correlated with plain films, prior to any lumbar spinal intervention. There is mild grade 1 retrolisthesis of L1 on L2 and L2 on L3. Mild grade 1 anterolisthesis of L4 on L5. Bone Marrow: Marrow is of normal overall signal. No acute vertebral body compression fractures. Mild reactive signal within the endplates adjacent to the T12-L1, L2-L3, and L3-4 intervertebral discs. Spinal Cord: Conus medullaris terminates at the upper L2 level. Visualized cord demonstrates normal signal and size. Paraspinous Soft Tissues: No paravertebral masses. L1-L2: Mild disc height loss and desiccation. Mild diffuse disc bulge. Mild facet and ligament flavum hypertrophy. Increased, mild canal stenosis and increase, mild bilateral foraminal stenosis. L2-L3: Moderate disc height loss and desiccation. Mild diffuse disc bulge. Mild bilateral facet and ligament flavum hypertrophy. Increased, mild canal stenosis. Mild bilateral foraminal stenosis. L3-L4: Moderate disc height loss and desiccation. Mild diffuse disc bulge. Mild facet and ligament flavum hypertrophy. Increased, mild canal stenosis. Increased mild bilateral foraminal stenosis. L4-L5: Mild disc height loss. Moderate disc desiccation. Mild diffuse disc bulge. Moderate bilateral facet hypertrophy. Increased, mild canal stenosis. Increased, mild bilateral foraminal stenosis. L5-S1: Moderate disc desiccation. Mild diffuse disc bulge. Mild bilateral facet hypertrophy. Mild canal stenosis. Increased, mild left foraminal stenosis. No right foraminal stenosis. IMPRESSION: 1. 5 lumbar type vertebral bodies were presumed for the current report. Plain films of the lumbar spine are recommended for confirmation, prior to any lumbar spinal intervention. 2. Multilevel degenerative disc and facet disease, as well as ligamentum flavum hypertrophy and epidural lipomatosis. 3. Mild multilevel canal and foraminal stenoses. No neural impingement. Dictated by: Hebert Rodriguez M.D. on 04/24/2019 at 11:43 Approved by: Hebert Rodriguez M.D. on 04/24/2019 at 11:47
== END ==
PROVIDERS: PCP Internal Medicine; Visit Provider Internal Medicine
DX: M51.16 Intervertebral disc disorders with radiculopathy, lumbar region (principal); M51.17 Intervertebral disc disorders with radiculopathy, lumbosacral region; M48.061 Spinal stenosis, lumbar region without neurogenic claudication; M48.07 Spinal stenosis, lumbosacral region; E88.2 Lipomatosis, not elsewhere classified
CPT/HCPCS: 72148

== ENCOUNTER → 2019-05-10 11:43 | Outpatient (CLI) | payer MEDICARE, SELFPAY ==
--- NOTE | 2019-05-10 | DI.MG.S_ITS ---
BILATERAL DIGITAL SCREENING MAMMOGRAM 3D/2D WITH CAD: 05/10/2019 CLINICAL: Routine screening. Comparison is made to exams dated: 01/31/2018 mammogram, 08/23/2016 mammogram, 02/05/2014 mammogram - [facility], and 04/23/2012 mammogram - [facility]. The tissue of both breasts is extremely dense, which lowers the sensitivity of mammography. Current study was also evaluated with a Computer Aided Detection (CAD) system. There are benign vascular calcifications in both breasts. No significant masses, calcifications, or other findings are seen in either breast. There has been no significant interval change. IMPRESSION: There is no mammographic evidence of malignancy. A 1 year screening mammogram is recommended. This exam was interpreted at Station ID: [id number]. NOTE: For mammograms, a report in lay terms will be sent to the patient. Approximately 15% of breast malignancies will not be visualized mammographically. In the management of a palpable breast mass, a negative mammogram must not discourage biopsy of a clinically suspicious lesion. Electronically Signed By: Nilesh wotoen/peyton:05/10/2019 14:05:11 letter sent: Normal Exam ACR BI-RADS Category 2: Benign Finding(s) 3342F
== END ==
PROVIDERS: PCP Internal Medicine; Visit Provider Internal Medicine
DX: Z12.31 Encounter for screening mammogram for malignant neoplasm of breast (principal)
CPT/HCPCS: 77063; 77067

== ENCOUNTER → 2019-05-15 14:58 | Outpatient (ROUT) | payer MEDICARE, SELFPAY ==
[2019-05-15 16:06] LABS: Vitamin B12 > 1000 pg/mL (239-931)
== END ==
PROVIDERS: PCP Internal Medicine; Visit Provider Internal Medicine
DX: G62.9 Polyneuropathy, unspecified (principal)
CPT/HCPCS: 82607

== ENCOUNTER → 2019-06-11 15:38 | Outpatient (ROUT) | payer MEDICARE, SELFPAY ==
[2019-06-11 17:25] LABS: Vitamin B12 846 pg/mL (239-931)
== END ==
PROVIDERS: PCP Internal Medicine; Visit Provider Internal Medicine
DX: G62.9 Polyneuropathy, unspecified (principal)
CPT/HCPCS: 82607

== ENCOUNTER → 2020-08-28 14:24 | Outpatient (CLI) | payer OTHER, SELFPAY ==
--- NOTE | 2020-08-28 14:25 | DI.CT.S_ITS ---
PROCEDURE: CT HEAD/BRAIN WO CON INDICATIONS: Headache, unspecified TECHNIQUE: Noncontrast 4.5 mm thick angled axial sections acquired from the foramen magnum to the vertex, with coronal and sagittal reformats. For radiation dose reduction, the following was used: automated exposure control, adjustment of mA and/or kV according to patient size. COMPARISON: None. FINDINGS: Image quality: Excellent. CSF spaces: Basal cisterns are patent. No extra-axial fluid collections. The ventricles are symmetric in size and shape. Brain: No intracranial bleeds or masses. There is cerebral volume loss for age, with resultant ventricular and sulcal prominence. There are periventricular and deep white matter chronic small vessel ischemic changes. There is intracranial internal carotid artery atherosclerosis. Skull and face: Calvarium and visualized facial bones appear intact, without suspicious lesions. Sinuses: Visualized sinuses and mastoids are clear. IMPRESSION: Unremarkable intracranial study, without an imaging explanation found for the patient's presenting history of headache. Dictated by: Adair Sifuentes M.D. on 08/28/2020 at 13:40 Approved by: Adair Sifuentes M.D. on 08/28/2020 at 13:41
== END ==
PROVIDERS: PCP Internal Medicine; Referring Provider Internal Medicine; Visit Provider Internal Medicine
DX: R51.9 Headache, unspecified (principal)
CPT/HCPCS: 70450

== ENCOUNTER → 2020-08-31 10:34 | Outpatient (CLI) | payer OTHER, SELFPAY ==
[2020-08-31 10:43] LABS: Bacteria Urine None Seen; WBC Urine None Seen (0-5/HPF)
[2020-08-31 11:49] LABS: Appearance Urine UA CLEAR; Bilirubin Urine UA NEGATIVE (NEGATIVE); Color Urine UA YELLOW; Glucose Urine UA NEGATIVE (Negative); Ketones Urine UA NEGATIVE (NEGATIVE); Leukocyte Esterase Urine UA NEGATIVE (NEGATIVE); Nitrite Urine UA NEGATIVE (Negative); Occult Blood Urine UA TRACE-INTACT (Negative); Protein Urine UA NEGATIVE (Negative); Specific Gravity Urine UA 1.015 (1.000-1.035); Urobilinogen Urine UA 0.2 E.U./dL (0.2)
[2020-08-31 11:55] LABS: Hematocrit 43.4 % (36-46); Hemoglobin 14.5 g/dL (12.0-16.0); Mean Corpuscular HGB Conc 33.5 % (30-36); Mean Corpuscular Hemoglobin 30.1 PG (26-34); Platelet Count 354 X10^3/uL (150-400); Red Blood Cell Count 4.83 X10^6/uL (4.0-5.2); Red Cell Distribution Width 13.2 % (11.6-14.8); White Blood Cell Count 7.5 X10^3/uL (4.5-11.0)
[2020-08-31 12:03] LABS: Alanine Aminotransferase 12 IU/L (<35); Albumin Globulin Ratio 1.3 (1.0-2.8); Alkaline Phosphatase 81 U/L (38-126); Aspartate Aminotransferase 26 IU/L (14-36); BUN Creatinine Ratio 31.3 (6-22); Bilirubin Total 0.5 mg/dL (0.2-1.3); Blood Urea Nitrogen 20 mg/dL (7-17); C-Reactive Protein Quant < 0.5 mg/dL (<1.0); Calcium 9.3 mg/dL (8.4-10.2); Carbon Dioxide 27 mmol/L (22-32); Chloride 102 mmol/L (98-107); Cholesterol 175 mg/dL (140-199); Estimated Glomerular Filt Rate > 60.0 mL/min (>60); Glucose 88 mg/dL (80-110); HDL Cholesterol 69 mg/dL (40-60); HEMOLYSIS < 15 (0-50); LDL Cholesterol Calculated 91 mg/dL (<100); Potassium 4.1 mmol/L (3.4-5.1); Sodium 136 mmol/L (137-145); Triglycerides 77 mg/dL (35-150)
[2020-08-31 12:10] LABS: Culture Indicated Urine Cult Not Indicated; RBC Urine 0-1/HPF (0-5/HPF)
[2020-08-31 12:31] LABS: Vitamin D 25 Hydroxy (D3) 86.3 ng/mL (30.0-100.0)
[2020-08-31 12:44] LABS: TSH w/ Reflex to FT4 1.48 uIU/mL (0.47-4.68)
[2020-08-31 13:01] LABS: Folate > 20.0 ng/mL (2.76-20.0)
== END ==
PROVIDERS: PCP Internal Medicine; Referring Provider Internal Medicine; Visit Provider Internal Medicine
DX: K05.6 Periodontal disease, unspecified (principal); M81.0 Age-related osteoporosis without current pathological fracture; E78.00 Pure hypercholesterolemia, unspecified
CPT/HCPCS: 36415; 80053; 80061; 81001; 82306; 82746; 84443; 85027; 86140

== ENCOUNTER → 2021-01-14 09:34 | Outpatient (CLI) | payer OTHER, SELFPAY ==
--- NOTE | 2021-01-14 | DI.RAD.S_ITS ---
PROCEDURE: XR DEXA AXIAL SKELETON INDICATIONS: SCREENING COMPARISON: [facility], CR, XR DEXA AXIAL SKELETON, 10/09/2017, 13:45. FINDINGS: This blank DEXA report has been sent in error by the PACS system. The correct and complete report will be forthcoming in 1-2 days. Thank you for your patience and understanding. Dictated by: Joy Fung MD, PhD on 01/14/2021 at 10:47 Approved by: Joy Fung MD, PhD on 01/14/2021 at 10:48
== END ==
PROVIDERS: PCP Internal Medicine; Referring Provider Internal Medicine; Visit Provider Internal Medicine
DX: Z13.820 Encounter for screening for osteoporosis; M81.0 Age-related osteoporosis without current pathological fracture; Z78.0 Asymptomatic menopausal state; Z82.62 Family history of osteoporosis
CPT/HCPCS: 77080

== ENCOUNTER → 2021-01-15 09:06 | Outpatient (CLI) | payer OTHER, SELFPAY ==
--- NOTE | 2021-01-15 09:07 | DI.MG.S_ITS ---
BILATERAL DIGITAL SCREENING MAMMOGRAM 3D/2D WITH CAD: 01/15/2021 CLINICAL: Routine screening. Comparison is made to exams dated: 05/10/2019 mammogram, 01/31/2018 mammogram, and 08/23/2016 mammogram - [facility]. The tissue of both breasts is extremely dense, which lowers the sensitivity of mammography. Current study was also evaluated with a Computer Aided Detection (CAD) system. There are benign vascular calcifications in both breasts. No significant masses, calcifications, or other findings are seen in either breast. There has been no significant interval change. IMPRESSION: BENIGN There is no mammographic evidence of malignancy. A 1 year screening mammogram is recommended. This exam was interpreted at Station ID: [id number]. NOTE: For mammograms, a report in lay terms will be sent to the patient. Approximately 15% of breast malignancies will not be visualized mammographically. In the management of a palpable breast mass, a negative mammogram must not discourage biopsy of a clinically suspicious lesion. Electronically Signed By: Scar dial/peyton:01/15/2021 10:12:02 letter sent: Normal Exam ACR BI-RADS Category 2: Benign Finding(s) 3342F
== END ==
PROVIDERS: PCP Internal Medicine; Referring Provider Internal Medicine; Visit Provider Internal Medicine
DX: Z12.31 Encounter for screening mammogram for malignant neoplasm of breast (principal)
CPT/HCPCS: 77063; 77067

== ENCOUNTER → 2021-02-03 07:27 | Outpatient (CLI) | payer OTHER, SELFPAY ==
[2021-02-03 08:12] LABS: Add Manual Diff / Slide Review NO; Basophils Absolute Auto 0 /uL (0-100); Basophils Percent Auto 0.7 % (0-2); Eosinophils Absolute Auto 100 /uL (0-450); Eosinophils Percent Auto 2.2 % (2-4); Hematocrit 45.3 % (36-46); Lymphocytes Absolute Auto 1100 /uL (1100-4500); Lymphocytes Percent Auto 18.2 % (25-40); Mean Corpuscular Hemoglobin 29.6 PG (26-34); Mean Corpuscular Volume 89.6 fL (80-100); Monocytes Absolute Auto 500 /uL (0-900); Monocytes Percent Auto 8.6 % (3-14); Neutrophils Absolute Auto 4200 /uL (1500-7000); Neutrophils Percent Auto 70.3 % (50-75); Platelet Count 348 X10^3/uL (150-400); Red Blood Cell Count 5.06 X10^6/uL (4.0-5.2); Red Cell Distribution Width 13.4 % (11.6-14.8)
[2021-02-03 08:26] LABS: Alanine Aminotransferase 29 IU/L (<35); Albumin 4.1 g/dL (3.5-5.0); Albumin Globulin Ratio 1.5 (1.0-2.8); Alkaline Phosphatase 72 U/L (38-126); Aspartate Aminotransferase 43 IU/L (14-36); Bilirubin Total 0.6 mg/dL (0.2-1.3); Blood Urea Nitrogen 23 mg/dL (7-17); C-Reactive Protein Quant 0.5 mg/dL (<1.0); Carbon Dioxide 34 mmol/L (22-32); Chloride 102 mmol/L (98-107); Cholesterol 182 mg/dL (140-199); Estimated Glomerular Filt Rate > 60.0 mL/min (>60); Globulin 2.7 g/dL (1.7-4.1); Glucose 76 mg/dL (80-110); HDL Cholesterol 69 mg/dL (40-60); HEMOLYSIS < 15 (0-50); LDL Cholesterol Calculated 101 mg/dL (<100); Potassium 4.2 mmol/L (3.4-5.1); Sodium 138 mmol/L (137-145); Total Protein 6.8 g/dL (6.3-8.2); Triglycerides 58 mg/dL (35-150)
[2021-02-03 08:45] LABS: Vitamin D 25 Hydroxy (D3) 67.9 ng/mL (30.0-100.0)
[2021-02-03 08:59] LABS: TSH w/ Reflex to FT4 1.83 uIU/mL (0.47-4.68)
== END ==
PROVIDERS: PCP Internal Medicine; Referring Provider Internal Medicine; Visit Provider Internal Medicine
DX: K05.6 Periodontal disease, unspecified (principal); E78.00 Pure hypercholesterolemia, unspecified; M81.0 Age-related osteoporosis without current pathological fracture
CPT/HCPCS: 36415; 80053; 80061; 82306; 84443; 85025; 86140

== ENCOUNTER → 2021-02-23 09:09 | Outpatient (CLI) | payer OTHER, SELFPAY ==
--- NOTE | 2021-02-23 | DI.MRI.S_ITS ---
PROCEDURE: MR CERVICAL SPINE WO CON INDICATIONS: Cervicalgia TECHNIQUE: Noncontrast sagittal T1 spin echo and T2 fast spin echo, sagittal STIR, foraminal oblique sagittal T2 fast spin echo, and axial gradient echo or T2 fast spin echo through the cervical spine. COMPARISON: None. FINDINGS: Image quality: Excellent. Alignment and Curvature: There is trace C2-C3, C4-C5 and C7-T1 anterolisthesis. There is trace C5-C6 retrolisthesis. Bone Marrow: Mild reactive endplate changes noted adjacent to the C4-C5, C5-C6 and C6-C7 discs. Spinal Cord: Visualized spinal cord has normal size and signal. No cerebellar tonsillar herniation. Paraspinous Soft Tissues: No paravertebral masses. Prevertebral soft tissues are normal in thickness. C2-C3: Loss of disc signal. Mild, diffuse disc bulge. Mild right moderate left facet hypertrophy. No central stenosis. Moderate left neural foraminal narrowing. No neural compression. C3-C4: Loss of disc signal. Moderate bilateral facet hypertrophy. No central stenosis. Mild bilateral neural foraminal narrowing. No neural compression. C4-C5: Loss of disc signal and slight loss of disc height. Mild, diffuse disc bulge. Mild right moderate left facet hypertrophy. No central stenosis. Mild left neural foraminal narrowing. No neural compression. C5-C6: Loss of disc signal and height. Moderate, diffuse disc bulge. Mild bilateral facet hypertrophy. Mild bilateral uncovertebral joint hypertrophy. Mild narrowing of the central canal. Mild to moderate bilateral neural foraminal narrowing. No neural compression. C6-C7: Loss of disc signal and height. Mild, diffuse disc bulge. Mild bilateral facet hypertrophy. Mild bilateral uncovertebral joint hypertrophy. Mild narrowing of the central canal. Mild to moderate bilateral neural foraminal narrowing. No neural compression. C7-T1: Loss of disc signal. Minimal, diffuse disc bulge. No central stenosis. No neural foraminal narrowing. No neural compression IMPRESSION: 1. Multilevel degenerative disc disease. 2. Multilevel facet arthropathy. 3. No severe central canal narrowing. 4. No severe neural foraminal narrowing. 5. No neural compression Dictated by: Joy Fung MD, PhD on 02/23/2021 at 13:13 Approved by: Joy Fung MD, PhD on 02/23/2021 at 13:18
== END ==
PROVIDERS: PCP Internal Medicine; Referring Provider Internal Medicine; Visit Provider Internal Medicine
DX: M50.31 Other cervical disc degeneration, high cervical region (principal); M48.02 Spinal stenosis, cervical region; M47.812 Spondylosis without myelopathy or radiculopathy, cervical region
CPT/HCPCS: 72141

== ENCOUNTER → 2021-09-27 10:49 | Outpatient (CLI) | payer OTHER, SELFPAY ==
--- NOTE | 2021-09-27 | DI.RAD.S_ITS ---
PROCEDURE: XR FOOT RT MIN 3V INDICATIONS: RIGHT FOOT PAIN TECHNIQUE: 3 views of the foot were acquired. COMPARISON: None. FINDINGS: Bones: No fractures or dislocations. No suspicious bony lesions. Small plantar calcaneal spur present Soft tissues: No tibiotalar joint effusion. Achilles tendon appears normal. IMPRESSION: Small calcaneal spur. Otherwise unremarkable. Approved by: Yosef Ford M.D. on 09/27/2021 at 11:55
== END ==
PROVIDERS: PCP Internal Medicine; Referring Provider Internal Medicine; Visit Provider Internal Medicine
DX: M77.31 Calcaneal spur, right foot (principal); M79.671 Pain in right foot
CPT/HCPCS: 73630

== ENCOUNTER → 2021-10-12 16:02 | Outpatient (CLI) | payer OTHER, SELFPAY ==
--- NOTE | 2021-10-12 | DI.RAD.S_ITS ---
PROCEDURE: XR PELVIS 1-2V INDICATIONS: Pelvic Pain TECHNIQUE: A single view(s) of the pelvis acquired. COMPARISON: None. FINDINGS: Bones: No fractures or dislocations. No suspicious bony lesions. Degenerative changes of the symphysis pubis. Soft tissues: Visualized bowel gas pattern is normal. No suspicious soft tissue calcifications. IMPRESSION: Degenerative changes of the symphysis pubis, otherwise normal pelvis. Dictated by: Eliceo Shanks M.D. on 10/12/2021 at 16:58 Approved by: Eliceo Shanks M.D. on 10/12/2021 at 16:58
== END ==
PROVIDERS: PCP Internal Medicine; Referring Provider Internal Medicine; Visit Provider Internal Medicine
DX: R10.2 Pelvic and perineal pain (principal)
CPT/HCPCS: 72170

== ENCOUNTER → 2021-11-15 15:18 | Outpatient (CLI) | payer OTHER, SELFPAY ==
--- NOTE | 2021-11-15 | DI.RAD.S_ITS ---
PROCEDURE: XR RIBS RT MIN 3V W CXR 1V INDICATIONS: RIB PAIN TECHNIQUE: 2 views of the right ribs were acquired, along with a single view chest. COMPARISON: None. FINDINGS: Degraded by body habitus and motion artifact. Surgical changes and devices: None. Bones and chest wall: There is a possible minimally displaced right posterior 7th rib fracture. No suspicious bony lesions. Overlying soft tissues appear unremarkable. Lungs and pleura: No pleural effusions or pneumothorax. Lungs appear clear. Mediastinum: Mediastinal contours appear normal. Heart size is normal. IMPRESSION: 1. Limited examination demonstrating a possible minimally displaced right posterior 7th rib fracture. Dictated by: Hebert Rodriguez M.D. on 11/15/2021 at 16:06 Transcribed by: RAMSES on 11/15/2021 at 16:07 Approved by: Hebert Rodriguez M.D. on 11/15/2021 at 16:59
== END ==
PROVIDERS: PCP Internal Medicine; Referring Provider Internal Medicine; Visit Provider Physician Assistant
DX: R07.81 Pleurodynia (principal); M81.0 Age-related osteoporosis without current pathological fracture
CPT/HCPCS: 71101

== ENCOUNTER → 2022-03-05 09:17 | Outpatient (CLI) | payer OTHER, SELFPAY ==
--- NOTE | 2022-03-05 | DI.MG.S_ITS ---
BILATERAL DIGITAL SCREENING MAMMOGRAM 3D/2D WITH CAD: 03/05/2022 CLINICAL: Routine screening. Comparison is made to exams dated: 01/15/2021 mammogram, 05/10/2019 mammogram, and 01/31/2018 mammogram - [facility]. Both breasts are extremely dense, which lowers the sensitivity of mammography (category d />75% glandular tissue). Current study was also evaluated with a Computer Aided Detection (CAD) system. There are benign vascular calcifications in both breasts. No significant masses, calcifications, or other findings are seen in either breast. There has been no significant interval change. IMPRESSION: BENIGN There is no mammographic evidence of malignancy. A 1 year screening mammogram is recommended. Based on the Tyrer Cuzick model (a risk assessment model) the patient's lifetime risk is 4.9% and her 10 year risk is 0.0%. According to the ACR, ACS, and NCCN guidelines, an annual breast MRI exam along with mammogram is recommended if the patient's lifetime risk is 20% or greater. This exam was interpreted at Station ID: [id number]. NOTE: For mammograms, a report in lay terms will be sent to the patient. Approximately 15% of breast malignancies will not be visualized mammographically. In the management of a palpable breast mass, a negative mammogram must not discourage biopsy of a clinically suspicious lesion. Electronically Signed By: Scar dial/peyton:03/07/2022 08:19:59 letter sent: Normal Exam ACR BI-RADS Category 2: Benign Finding(s) 3342F
== END ==
PROVIDERS: PCP Internal Medicine; Referring Provider Internal Medicine; Visit Provider Internal Medicine
DX: Z12.31 Encounter for screening mammogram for malignant neoplasm of breast (principal)
CPT/HCPCS: 77063; 77067

== ENCOUNTER → 2022-04-07 10:46 | Outpatient (CLI) | payer OTHER, SELFPAY ==
--- NOTE | 2022-04-07 | DI.RAD.S_ITS ---
PROCEDURE: XR RIBS LT 2V INDICATIONS: Pain in thoracic spine TECHNIQUE: 2 views of the left ribs were acquired. COMPARISON: [facility], CR, XR RIBS RT MIN 3V W CXR 1V, 11/15/2021, 15:13. FINDINGS: Surgical changes and devices: None. Bones and chest wall: There is a deformity of the lateral left 7th rib suggesting prior, healed fracture. No other fractures visualized. Lungs and pleura: The visualized lung appears clear. No pleural effusions or pneumothorax are visible. IMPRESSION: Radiographic findings suggesting healed 7th rib left Left 7th rib fracture. No other displaced rib fractures visualized. Dictated by: Yesika Mccain M.D. on 04/07/2022 at 12:35 Approved by: Yesika Mccain M.D. on 04/07/2022 at 12:37
== END ==
PROVIDERS: PCP Internal Medicine; Referring Provider Internal Medicine; Visit Provider Internal Medicine
DX: M54.6 Pain in thoracic spine (principal)
CPT/HCPCS: 71100

== ENCOUNTER 2022-12-14 10:29 | Day surgery (SDC) | payer OTHER, SELFPAY ==
[2022-12-14 10:47] VITALS: BMI 23.0
[2022-12-14 10:55] VITALS: BP 146/99; PULSE 97; RESP 18; TEMP 36; O2SAT 98
[2022-12-14] MEDS: LACTATED RINGERS 1,000 ML 42 ML IV (11:00)
--- NOTE | 2022-12-14 11:11 | PM.HP.1 ---
History of Present Illness History of Present Illness Date Patient Seen: 12/14/22 Chief complaint: Dx Colonoscopy Narrative: History of colon polyps PFSH Medical History Arthritis Cellulitis Cervical vertebral fusion Esophageal reflux Finger laceration Generalized anxiety disorder Hx of fracture of nose Hypercholesterolemia IBS (irritable bowel syndrome) YUDELKA on CPAP Osteoporosis Palpitations Surgical History History of hysterectomy Hx of appendectomy Hx of rhinoplasty Status post cataract extraction of both eyes with insertion of intraocular lens Social History household members: children and none Smoking Status: Never smoker alcohol intake: current Meds Home Medications and Allergies Home Medications Medication Instructions Recorded Confirmed Type omega 3-bsy-dzd-fish oil 1,000 mg 1,000 mg PO DAILY ##0 06/25/16 12/14/22 History (120 mg-180 mg) capsule (Fish Oil) phytonadione (vitamin K1) 5 mg 5 mg PO DIRECTED ##0 06/25/16 12/14/22 History tablet (Mephyton) melatonin 2.5 mg chewable tablet 2.5 mg PO BEDTIME PRN Sleep 05/14/18 12/14/22 History Allergies Allergy/AdvReac Type Severity Reaction Status Date / Time Latex, Natural Rubber Allergy Unknown Rash Verified 12/14/22 10:46 Exam Vital Signs (past 8 hours): - 12/14/22 10:55 Temperature 96.8 F L Pulse Rate 97 H Respiratory Rate 18 Blood Pressure 146/99 H Pulse Oximetry 98 Oxygen Delivery Method Room Air Oxygen Delivery Method Room Air Narrative Exam Narrative: Oropharynx free of lesions Chest clear to auscultation percussion Cardiac exam reveals no S3 or murmur Assessment & Plan Assessment & Plan narrative: History of colon polyps need for follow-up colonoscopy. Risks, benefits, alternatives have been explained.
--- NOTE | 2022-12-14 11:12 | PM.OP.COLON ---
Operative Date/Time/Diagnoses Date of procedure: 12/14/22 Pre-op diagnosis: See indication and findings Procedure & Clinicians Study performed: Colonoscopy Indications: History of colon polyps Surgeon: Georgina Lockett Procedure Notes Procedure in detail: After informed consent was obtained the patient was placed in left lateral decubitus position. The video colonoscope was introduced the rectum slowly advanced to 50 cm. At this point I was unable the the scope further despite feeling 2 tight loops in the right lower quadrant. After multiple attempts controlled loops it was elected to abort.. Preparation was good. On slow withdrawal mucosa was carefully examined. The scope was removed. The patient tolerated procedure well. Blood loss none Complications none Sedation mac Findings 1. Normal colonoscopy to 50 cm If of completion of colorectal cancer screening is desired then I would suggest video colonoscopy Either way this could be her last colorectal cancer screening event.
[2022-12-14 11:30] VITALS: BP 108/65; PULSE 81; RESP 19; TEMP 36.1; O2SAT 95
[2022-12-14 11:35] VITALS: BP 120/77; PULSE 80; RESP 12; O2SAT 95
[2022-12-14 11:40] VITALS: BP 124/80; PULSE 68; RESP 13; O2SAT 99
== END 2022-12-14 11:57 | disposition home or self-care (01) ==
PROVIDERS: PCP Internal Medicine; Referring Provider Internal Medicine Gastroenterology; Visit Provider Internal Medicine Gastroenterology
PROC: 0DJD8ZZ Inspection of Lower Intestinal Tract, Via Natural or Artificial Opening Endoscopic (ICD-10-PCS; CPT 45378; principal; 2022-12-14 11:30)
DX: Z12.11 Encounter for screening for malignant neoplasm of colon (principal); Z86.010 Personal history of colon polyps; Z53.09 Procedure and treatment not carried out because of other contraindication
CPT/HCPCS: 45378; J2704

== ENCOUNTER → 2023-02-15 10:19 | Outpatient (CLI) | payer OTHER, SELFPAY ==
--- NOTE | 2023-02-15 | DI.RAD.S_ITS ---
Bone Density Report Name: KIM LATIF Age: 77 Sex: Female Ethnicity: White Date of : 1945 Indication: osteopenia; Referring Provider: MARY MONTIEL Study: Bone densitometry was performed. Exam Date: February 15, 2023 Accession number: [id number] Bone Density: Region BMD T-score Z-score Classification AP Spine(L1-L4) 0.767 -2.5 0.1 Osteoporosis Femoral Neck (Left) 0.565 -2.6 -0.3 Osteoporosis Total Hip (Left) 0.675 -2.2 -0.2 Osteopenia Femoral Neck (Right) 0.579 -2.4 -0.2 Osteopenia Total Hip (Right) 0.671 -2.2 -0.2 Osteopenia Total Hip Mean 0.673 -2.2 -0.2 Osteopenia World Health Organization criteria for BMD impression classify patients as: Normal (T-score at or above -1.0), Osteopenia (T-score between -1.0 and -2.5), or Osteoporosis (T-score at or below -2.5). 10-year Fracture Risk: FRAX not reported because: Some T-score for Spine Total or Hip Total or Femoral Neck at or below -2.5 Previous Exams: -- Region Exam Age BMD T-score BMD Change BMD Change Date g/cm2 vs Baseline vs Previous -- AP Spine (L1-L4) 02/15/2023 77 0.767 -2.5 -0.024 (-3.1%)# -0.024 (-3.1%)# 01/14/2021 75 0.791 -2.3 Total Hip(Left) 02/15/2023 77 0.675 -2.2 0.000 (0.0%)# 0.000 (0.0%)# 01/14/2021 75 0.675 -2.2 Total Hip(Right) 02/15/2023 77 0.671 -2.2 -0.002 (-0.3%)# -0.002 (-0.3%)# 01/14/2021 75 0.673 -2.2 -- *Denotes significance at 95% confidence level, LSC for AP Spine = 0.022 g/cm2, LSC for Total Hip = 0.027 g/cm2 # Denotes dissimilar scan types or analysis methods Impression: The patient has osteoporosis, based on the Left Femoral Neck T-score. No significant bone loss was observed. Discussion: INCREASED RISK OF FRACTURE. BONE DENSITY IS UNDESIRABLY LOW AT ONE OR MORE SKELETAL SITES, CONSISTENT WITH POSTMENOPAUSAL OSTEOPOROSIS. This patient's lowest T-score meets the World Health Organization's (WHO) criteria for osteoporosis at one or more sites (T-score -2.5 or below). In untreated patients, the risk of osteoporotic fracture increases approximately two-fold for each 1.0 SD decrease in T-score. Low bone density is not the only risk factor for fracture; also consider factors such as patient's age, frailty or poor health, risk of falling, risk of injury, previous osteoporotic fracture, family history of osteoporosis, cigarette smoking, low body weight, etc. Not everyone with low bone mineral density has osteoporosis; osteomalacia and other metabolic bone disorders should also be considered. Patients who have osteoporosis should be evaluated for specific diseases and conditions (secondary causes) that may cause or contribute to bone loss. The [place] [employer] Endocrinologists (AACE) and National Osteoporosis Foundation (NOF) recommend pharmacologic intervention for all postmenopausal women whose T-score is in this range. The patient should follow a healthful lifestyle (good nutrition with adequate calcium and vitamin D, and appropriate weight-bearing exercise). Follow-Up: Consider a repeat BMD and Vertebral Fracture Assessment (VFA) exam in 2 years or sooner if medically necessary, to reassess this patient's status. Reported by: BREANNA VICKERS M.D on 02/15/2023 10:51:00 AM.
--- NOTE | 2023-02-15 | DI.RAD.S_ITS ---
PROCEDURE: XR THORACIC SPINE 2V INDICATIONS: thoracic back pain TECHNIQUE: 3 views of the thoracic spine were acquired. COMPARISON: [facility], , XR THORACIC SPINE 2V, 10/10/2018, 12:23. [facility], , THORACIC SPINE 3 VIEWS, 02/21/2017, 14:25. FINDINGS: Bones: Slight spinal curvature again seen in the thoracolumbar spine. There are mild endplate deformities, new compared to 2019, for example the superior endplates of T8 and T6. Mild superimposed degenerative changes. Soft tissues: Possible indeterminate calcifications seen in the left upper quadrant, versus costal cartilage calcifications. IMPRESSION: Mild degenerative changes. Slight spinal curvature. Compared to 2019, new, but mild superior endplate height loss of some midthoracic vertebral bodies, age indeterminate, possibly due to slight compression injury versus degenerative disc disease. If there is high concern for further derangement, consider MRI evaluation. Dictated by: Akash Pyle M.D. on 02/15/2023 at 13:18 Approved by: Akash Pyle M.D. on 02/15/2023 at 13:21
== END ==
PROVIDERS: PCP Internal Medicine; Referring Provider Internal Medicine; Visit Provider Internal Medicine
DX: M81.0 Age-related osteoporosis without current pathological fracture (principal); M54.6 Pain in thoracic spine; M43.8X4 Other specified deforming dorsopathies, thoracic region; M85.89 Other specified disorders of bone density and structure, multiple sites
CPT/HCPCS: 72070; 77080

== ENCOUNTER → 2023-02-27 12:33 | Outpatient (CLI) | payer OTHER, SELFPAY ==
--- NOTE | 2023-02-27 | DI.CT.S_ITS ---
PROCEDURE: CT ABDOMEN PELVIS W CON INDICATIONS: Constipation, unspecified TECHNIQUE: After the administration of oral and intravenous contrast, axial sections were acquired from the lung bases to the pubic symphysis. Coronal and sagittal reformats were performed. For radiation dose reduction, the following was used: automated exposure control, adjustment of mA and/or kV according to patient size. COMPARISON:None. FINDINGS: Image quality: Excellent. Lung bases: Unremarkable. Heart: No significant findings. ABDOMEN: Liver: Unremarkable. Gallbladder: Unremarkable without calcified stones Biliary ducts: Unremarkable. Pancreas: Unremarkable. Spleen: Unremarkable. Adrenal Glands: Unremarkable. Kidneys and Ureters: Unremarkable. Stomach and Bowel: Stomach, small bowel loops, and colon are unremarkable. Moderate to large diffuse fecal load. Peritoneum: No abnormal intraperitoneal fluid. No free air. Ventral Wall: No hernia. Abdominal Nodes: No retroperitoneal or mesenteric adenopathy by size criteria. Vessels: Aorta and inferior vena cava are normal in size. PELVIS: Pelvic Organs: Uterus is surgically absent. There is a cystic lesion of the right adnexa measuring 3.7 cm. . Bladder: Unremarkable. Pelvic Nodes: No enlarged lymph nodes. Miscellaneous: No inguinal hernias are seen. Bones: Lumbar degenerative change. No lytic or blastic bony lesions. No compression fractures. IMPRESSION: 1. Moderate to large diffuse fecal load. Otherwise unremarkable bowel. 2. 3.7 cm cystic lesion of the right adnexa. Differential diagnosis includes benign causes and typically indolent malignant causes. Comment: Consider pelvic ultrasound for baseline further characterization of the right adnexal lesion. Current recommendations are to follow up lesions of this size in postmenopausal females with imaging Q 12 months, either utilizing ultrasound or CT. Dictated by: Braulio Medrano M.D. on 02/27/2023 at 16:45 Approved by: Braulio Medrano M.D. on 02/27/2023 at 16:50
[2023-02-27 14:07] LABS: Estimated Glomerular Filt Rate > 60 mL/min (>60)
== END ==
PROVIDERS: Radiology Diagnostic Radiology; PCP Internal Medicine; Referring Provider Internal Medicine; Visit Provider Internal Medicine
DX: K59.00 Constipation, unspecified (principal); K21.9 Gastro-esophageal reflux disease without esophagitis; N94.9 Unspecified condition associated with female genital organs and menstrual cycle
CPT/HCPCS: 36415; 74177; 82565; Q9967

== ENCOUNTER → 2023-03-15 08:08 | Outpatient (CLI) | payer OTHER, SELFPAY ==
--- NOTE | 2023-03-15 | DI.MG.S_ITS ---
BILATERAL DIGITAL SCREENING MAMMOGRAM 3D/2D WITH CAD: 03/15/2023 CLINICAL: Routine screening. Comparison is made to exams dated: 03/05/2022 mammogram, 01/15/2021 mammogram, 05/10/2019 mammogram, and 01/31/2018 mammogram - [facility]. Both breasts are extremely dense, which lowers the sensitivity of mammography (category d />75% glandular tissue). Current study was also evaluated with a Computer Aided Detection (CAD) system. There are benign vascular calcifications in both breasts. No significant masses, calcifications, or other findings are seen in either breast. There has been no significant interval change. IMPRESSION: BENIGN There is no mammographic evidence of malignancy. A 1 year screening mammogram is recommended. Based on the Tyrer Cuzick model (a risk assessment model) the patient's lifetime risk is 4.4% and her 10 year risk is 0.0%. According to the ACR, ACS, and NCCN guidelines, an annual breast MRI exam along with mammogram is recommended if the patient's lifetime risk is 20% or greater. This exam was interpreted at Station ID: [id number]. NOTE: For mammograms, a report in lay terms will be sent to the patient. Approximately 15% of breast malignancies will not be visualized mammographically. In the management of a palpable breast mass, a negative mammogram must not discourage biopsy of a clinically suspicious lesion. Electronically Signed By: Nilesh wooten/peyton:03/15/2023 08:54:56 letter sent: Normal Exam ACR BI-RADS Category 2: Benign Finding(s) [id number]
--- NOTE | 2023-03-15 | DI.US.S_ITS ---
PROCEDURE: US PELVIC COMPLETE INDICATIONS: FOLLOW UP CT - RIGHT ADNEXAL CYST TECHNIQUE: Real-time scanning was performed of the pelvic organs, with image documentation. Additional endovaginal scanning was necessary due to incomplete visualization of the adnexal and endometrial structures by transabdominal scanning. COMPARISON: [facility], CT, CT ABDOMEN PELVIS W CON, 02/27/2023, 14:27. FINDINGS: Uterus: Hysterectomy Ovaries: Right ovary measures 4.5 x 4.2 x 3.2 cm for a calculated volume of 31.4 cc. There is a single septated ovarian cyst measuring 3.5 x 3.6 x 2.6 cm no internal vascularity. Left ovary not visualized. Other: No pathologic free abdominal or pelvic fluid. IMPRESSION: Benign appearing right ovarian cyst with single thin septation. Consider 12 month follow-up Approved by: Yosef Ford M.D. on 03/15/2023 at 14:13
== END ==
PROVIDERS: PCP Internal Medicine; Referring Provider Internal Medicine; Visit Provider Internal Medicine
DX: Z12.31 Encounter for screening mammogram for malignant neoplasm of breast (principal); N94.89 Other specified conditions associated with female genital organs and menstrual cycle; N95.8 Other specified menopausal and perimenopausal disorders; N83.201 Unspecified ovarian cyst, right side
CPT/HCPCS: 76830; 76856; 77063; 77067

== ENCOUNTER 2023-10-03 15:48 | Emergency (ER) | payer MEDICARE, SELFPAY ==
[2023-10-03 16:03] VITALS: BP 189/81; PULSE 91; RESP 16; TEMP 36.1; O2SAT 98; BMI 23.3
--- NOTE | 2023-10-03 16:58 | ED_ITS ---
HPI - Animal Bite <Cortez Moreland PA-C - Last Filed: 10/03/23 17:11> General Chief Complaint: Animal Bite Stated Complaint: animal bite Time Seen by Provider: 10/03/23 16:47 Source: patient Mode of arrival: Ambulatory History of Present Illness HPI narrative: 78-year-old female presents to the ED status post a dog bite to the right hand that occurred yesterday. Patient was bitten by her neighbor's dog. Dog was un provoked. Patient's tetanus is up-to-date. Patient denies numbness, tingling, weakness. There is a small puncture wound to the right hand with no signs of infection. Related Data Home Medications Medication Instructions Recorded Confirmed omega 9-clw-icr-fish oil 1,000 mg 1,000 mg PO DAILY ##0 06/25/16 12/14/22 (120 mg-180 mg) capsule (Fish Oil) phytonadione (vitamin K1) 5 mg 5 mg PO DIRECTED ##0 06/25/16 12/14/22 tablet (Mephyton) melatonin 2.5 mg chewable tablet 2.5 mg PO BEDTIME PRN Sleep 05/14/18 12/14/22 Previous Rx's Medication Instructions Recorded amoxicillin 875 mg-potassium 1 tab PO Q12H 7 days #14 tabs 10/03/23 clavulanate 125 mg tablet Allergies Allergy/AdvReac Type Severity Reaction Status Date / Time Latex, Natural Rubber Allergy Unknown Rash Verified 10/03/23 16:08 Review of Systems <Cortez Moreland PA-C - Last Filed: 10/03/23 17:11> Constitutional Constitutional: Denies chills, Denies fatigue, Denies fever(s), Denies frequent falls, Denies lethargy and Denies weakness Eyes Eyes: Denies change in vision, Denies eye discharge, Denies irritation and Denies loss of vision ENT Ears, Nose, Mouth, and Throat: Denies change in voice, Denies dizziness, Denies neck pain, Denies sore throat and Denies throat swelling Cardiovascular Cardiovascular: Denies chest pain, Denies irregular heart rhythm, Denies lightheadedness, Denies palpitations, Denies dyspnea, Denies dyspnea on exertion and Denies orthopnea Respiratory Respiratory: Denies cough, Denies dyspnea, Denies dyspnea on exertion and Denies wheezing Gastrointestinal Gastrointestinal: Denies abdominal pain, Denies change in bowel habits, Denies diarrhea, Denies nausea and Denies vomiting Musculoskeletal Musculoskeletal: Denies neck pain and Denies numbness Integumentary/Breasts Skin/Breast: Denies pruritus, Denies erythema, Denies rash and Denies wounds Comments: Dog bite to right hand Neurologic Neurologic: Denies behavioral changes, Denies confusion, Denies dizziness, Denies frequent falls, Denies loss of vision, Denies numbness and Denies weakness Psychiatric Psychiatric: Denies anxiety, Denies behavioral changes, Denies confusion, Denies depression, Denies homicidal ideation and Denies suicidal ideation Endocrine Endocrine: Denies fatigue, Denies flushing and Denies palpitations Hematologic/Lymphatic Hematologic/Lymphatic: Denies easy bruising Allergic/Immunologic Allergic/Immunologic: Denies urticaria, Denies throat swelling and Denies wheezing Patient History <Cortez Moreland PA-C - Last Filed: 10/03/23 17:11> Medical History Hypercholesterolemia Palpitations Esophageal reflux Generalized anxiety disorder IBS (irritable bowel syndrome) YUDELKA on CPAP Cellulitis Arthritis Osteoporosis Hx of fracture of nose Cervical vertebral fusion Finger laceration Surgical History History of hysterectomy Hx of appendectomy Hx of rhinoplasty Status post cataract extraction of both eyes with insertion of intraocular lens Social History household members: children and none Smoking Status: Never smoker alcohol intake: current Smoking Status: Never smoker alcohol intake frequency: 0-2 drinks per day Substance Use Type: does not use Exam <Cortez Moreland PA-C - Last Filed: 10/03/23 17:11> Narrative Exam Narrative: Const General:?cooperative, healthy appearing and comfortable [facility] Head:?normal to inspection Ears:?hearing grossly normal bilaterally Nose:?external nose normal Face and sinus:?normal facial exam and sinuses nontender Mouth:?oral mucosae normal Throat:?posterior oropharynx normal Eyes General:?appearance normal, both eyes and all related structures Neck Neck:?normal visual inspection and no lymphadenopathy noted Resp Effort & Inspection:?normal respiratory effort Auscultation:?clear to auscultation bilaterally Cardio Rate:?regular rate Rhythm:?regular rhythm Integumentary There is a small puncture wound on the right dorsum of the hand. No bony tenderness to palpation. No signs of any retained foreign bodies. No signs of infection at present. Patient is neurovascularly intact. Neuro General:?patient alert, patient awake and patient oriented x3 Initial Vital Signs Initial Vital Signs: Vital Signs Temperature 97 F L 10/03/23 16:03 Pulse Rate 91 H 10/03/23 16:03 Respiratory Rate 16 10/03/23 16:03 Blood Pressure 189/81 H 10/03/23 16:03 Pulse Oximetry 98 10/03/23 16:03 Oxygen Delivery Method Room Air 10/03/23 16:03 <DO Le Cotto Last Filed: 10/03/23 17:35> Initial Vital Signs Initial Vital Signs: Vital Signs Temperature 97 F L 10/03/23 16:03 Pulse Rate 91 H 10/03/23 16:03 Respiratory Rate 16 10/03/23 16:03 Blood Pressure 189/81 H 10/03/23 16:03 Pulse Oximetry 98 10/03/23 16:03 Oxygen Delivery Method Room Air 10/03/23 16:03 Course <Cortez Moreland PA-C - Last Filed: 10/03/23 17:11> Vital Signs Vital signs: Vital Signs - 8 hr 10/03/23 16:03 10/03/23 17:17 Temperature 97 F L 97.9 F Pulse Rate 91 H 80 Respiratory Rate 16 18 Blood Pressure 189/81 H 138/72 Pulse Oximetry 98 97 Oxygen Delivery Method Room Air Room Air <DO Le Cotto Last Filed: 10/03/23 17:35> Vital Signs Vital signs: Vital Signs - 8 hr 10/03/23 16:03 10/03/23 17:17 Temperature 97 F L 97.9 F Pulse Rate 91 H 80 Respiratory Rate 16 18 Blood Pressure 189/81 H 138/72 Pulse Oximetry 98 97 Oxygen Delivery Method Room Air Room Air MDM - Animal Bite <TEJAS Sanchez Last Filed: 10/03/23 17:11> MDM Narrative Medical decision making narrative: 78-year-old female presents to the ED status post a dog bite to the right hand that occurred yesterday. There is a small puncture wound to the right hand, no signs of superimposed infection or swelling. There is no tenderness to palpation. No indication for imaging at this time since unlikely fracture or foreign body. Patient was prescribed antibiotics. ED return precautions discussed with patient. Patient verbalized understanding. Medical records reviewed: Yes Discharge Plan Departure Patient Disposition: Home Clinical Impression: Dog bite Instructions: DI for Dog Bite Activity Restrictions/Additional Instructions: You were evaluated in the ED today for a dog bite. The physical exam is reassuring for a very small break in the skin. Dogs are not known to carry rabies in the [place], and is therefore not a cause for concern. Dog bites do have a propensity to get infected, especially on the hands. You are therefore being prescribed antibiotics for a week. Please take the antibiotics as prescribed. You may keep the wound covered until it completely heals. Please follow-up with your PCP as soon as possible. Return to the ED if you have worsening symptoms. Prescriptions: New amoxicillin-pot clavulanate 875-125 mg tablet 1 tab PO Q12H 7 Days Qty: 14 0RF No Action phytonadione (vitamin K1) [Mephyton] 5 MG tablet 5 mg PO DIRECTED Qty: 0 omega 7-hwm-pmc-fish oil [Fish Oil] 1,000 MG capsule 1,000 mg PO DAILY Qty: 0 melatonin 2.5 mg tablet,chewable 2.5 mg PO BEDTIME PRN (Reason: Sleep) Referrals: Ankita De La Cruz MD [Primary Care Provider] - Stand Alone Forms: Patient Portal/API ED Sign-out <Patrick Ruiz, DO - Last Filed: 10/03/23 17:35> Cosign ED Attending Cosignature Attestation: Dr Ruiz Co-Sign Statement: I was available for consultation during this patient's emergency department visit. This chart is signed by myself for administrative purposes only. I did not have direct contact with this patient during this visit. They were seen independently by the APC.
[2023-10-03 17:17] VITALS: BP 138/72; PULSE 80; RESP 18; TEMP 36.6; O2SAT 97
== END 2023-10-03 17:18 | disposition home or self-care (01) ==
PROVIDERS: Emergency Provider Student in an Organized Health Care Education/Training Program; PCP Internal Medicine
DX: S61.451A Open bite of right hand, initial encounter (principal); W54.0XXA Bitten by dog, initial encounter
CPT/HCPCS: 99281; 99283

== ENCOUNTER → 2025-02-26 14:34 | Outpatient (CLI) | payer MEDICARE, SELFPAY ==
--- NOTE | 2025-02-26 | DI.RAD.S_ITS ---
PROCEDURE: XR DEXA AXIAL SKELETON INDICATIONS: Osteoporosis screening COMPARISON: [facility], , XR DEXA AXIAL SKELETON, 02/15/2023, 10:31. [facility], CR, XR DEXA AXIAL SKELETON, 01/14/2021, 9:55. FINDINGS: Lumbar Spine: Bone mineral density 0.68 g/cm2, T score -3.1 (comparison not valid, this study did not include L4) Left Femoral Neck: Bone mineral density 0.53 g/cm2, T score -2.8 previously -2.6. Left Hip: Bone mineral density 0.63 g/cm2, T score -2.5, previously -2.2. Fracture Risk Calculation (when applicable): Osteoporosis not applicable IMPRESSION: Osteoporosis. Decreased T-score in the left hip. Comparison for the lumbar spine not valid due to differences in measurement levels Follow-up guidelines as follows: Osteoporosis: Consider a repeat DEXA and Vertebral Fracture Assessment (VFA) exam in 2 years or sooner if medically necessary, to reassess this patient's status. Osteopenia: Consider a repeat DEXA in 2-3 years to reassess this patient's status, or if there is a new clinical indication. Normal: Consider a repeat DEXA in 5 years or sooner, or if there is a new clinical indication. All treatment decisions require clinical judgment and consideration of individual patient factors, including patient preferences, comorbidities, previous drug use, risk factors not captured in the FRAX model (e.g., frailty, falls, vitamin D deficiency, increased bone turnover, interval significant decline in bone density ) and possible under- or over-estimation of fracture risk by FRAX. In addition, the NOF Guide recommends that FDA-approved medical therapies be considered in postmenopausal women and men age >= 50 years with a: * Hip or vertebral (clinical or morphometric) fracture * T-score of <=-2.5 at the spine or hip * Ten-year fracture probability by FRAX of >= 3% for hip fracture or >=20% for major osteoporotic fracture. Dictated by: Akash Pyle M.D. on 02/26/2025 at 15:24 Approved by: Akash Pyle M.D. on 02/26/2025 at 15:25
--- NOTE | 2025-02-26 14:37 | DI.MG.S_ITS ---
MM screening mammo BI: 02/26/2025. BI-RADS: 1 CLINICAL: 79-year old female for bilateral screening mammogram. Tyrer-Cuzick lifetime risk of 1.4%. No personal or first-degree family history of breast cancer. PRIOR EXAMS 03/15/2023, 03/05/2022, 01/15/2021, 05/10/2019, MAMMOGRAPHY TECHNIQUE: 2D and 3D (tomosynthesis) digital mammographic views obtained, with additional images as needed for full coverage. Current study was also evaluated with a Computer Aided Detection (CAD) system. DENSITY C. The breasts are heterogeneously dense, which may obscure small masses. MAMMOGRAPHY FINDINGS Bilateral: No suspicious mass, asymmetry, microcalcification, or other abnormality seen. IMPRESSION: * No evidence of malignancy. RECOMMENDATIONS Bilateral * Annual screening mammography. OVERALL ASSESSMENT CATEGORY BI-RADS-1: Negative. The [employer] recommends annual screening mammography beginning at age 40 for women with average risk of breast cancer. ELECTRONICALLY SIGNED: Migdalia Cisneros M.D. on 02/26/2025 at 04:21:32 PM PT Interpreting Station ID: [id number]
== END ==
LOC: MAMMO 14:35
PROVIDERS: PCP Internal Medicine; Referring Provider Internal Medicine; Visit Provider Internal Medicine
DX: Z12.31 Encounter for screening mammogram for malignant neoplasm of breast (principal); M81.0 Age-related osteoporosis without current pathological fracture; R92.333 Mammographic heterogeneous density, bilateral breasts
CPT/HCPCS: 77063; 77067; 77080